=== PATIENT | female | born 1995 | race Caucasian/White ===

== ENCOUNTER 2017-04-19 21:22 | Emergency (ER) | payer OTHER ==
[~2017-04-19] VITALS: Ht 161.3 cm; Wt 83.0 kg
[2017-04-19 21:31] VITALS: TEMP 37; Ht 161.3 cm; Wt 83.0 kg
[2017-04-19] MEDS ORDERED: KETOROLAC TROMETHAMINE 30 MG/ML VIAL IV STA (21:39)
[2017-04-19] MEDS ORDERED: SODIUM CHLORIDE 0.9% 1000ML 1,000 ML IV ONE (21:45)
[2017-04-19] MEDS ORDERED: MEDR150I IM (21:52)
[2017-04-19 22:11] LABS: URINE APPEARANCE CLEAR (CLEAR); URINE BILIRUBIN NEG (NEG); URINE COLOR YELLOW; URINE EPITHELIAL CELL AUTO >30 /lpf (0-5); URINE NITRITE NEG (NEG); URINE SPECIFIC GRAVITY 1.027 (1.000-1.030); UROBILINOGEN NEG (NEG); ZZUR CULT IF INDIC CLEAN CATCH YES
[2017-04-19 22:18] LABS: MANUAL MICROSCOPIC REQUIRED? NO; REVIEW REQ? NO
[2017-04-19 22:41] LABS: BASO % 0.2 %; BASO ABS # 0.03 K/uL (0-0.2); COMPLETE YES; EOS % 0.6 %; HEMATOCRIT 41.4 % (37-47); IG% 0.2 %; LYMPH % 36.3 %; MEAN CELL VOLUME 90.4 fL (80-100); MEAN CORPUSCULAR HEMOGLOBIN 31.7 pg (25-34); MEAN PLATELET VOLUME 9.8 fL (7.4-10.4); MONO % 5.7 %; PLATELET COUNT 316 K/uL (130-400); RED BLOOD COUNT 4.58 M/uL (4.2-5.4); WHITE BLOOD COUNT 12.39 K/uL (4.8-10.8)
[2017-04-19 23:07] LABS: BUN/CREATININE RATIO 14.6 (10-20); CREATININE 0.84 mg/dl (0.60-1.20); POTASSIUM 4.1 mmol/L (3.5-5.1)
[2017-04-20 00:32] VITALS: BP 118/70; PULSE 98; O2SAT 98
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
--- NOTE | 2017-04-20 06:30 | DIAGNOSTIC IMAGING REPORT ---
PA CHEST RADIOGRAPH AND UPRIGHT AND SUPINE AP RADIOGRAPHS OF THE ABDOMEN CLINICAL HISTORY: Abdominal cramping. COMPARISON STUDY: No previous studies for comparison. FINDINGS: Lung volumes are normal. There is an azygos fissure. No pneumothorax or pleural effusion is present. There is no consolidation to suggest pneumonia. Pulmonary vascularity is normal. Cardiomediastinal silhouette is normal. There is no free air. The bowel gas pattern is normal. IMPRESSION: 1. No free air or evidence of bowel obstruction. 2. No acute cardiopulmonary findings. Electronically signed by: Demetrius Mo M.D. 04/20/2017 6:29 AM Dictated Date/Time: 04/20/2017 6:27 AM
--- NOTE | 2017-04-20 07:05 | DIAGNOSTIC IMAGING REPORT ---
ABDOMEN AND PELVIS CT WITHOUT CONTRAST CT DOSE: 480.34 mGy.cm HISTORY: Acute generalized abdominal pain with leukocytosis and nausea Abd pain. Elevated WBC TECHNIQUE: Multiaxial CT images of the abdomen and pelvis were performed without contrast. A dose lowering technique was utilized adhering to the principles of ALARA. COMPARISON STUDY: Ultrasound 05/17/2015. FINDINGS: The lung bases are generally clear. There is no pneumatosis or pneumoperitoneum. Imaged inferior cardiac chambers are unremarkable. Gallbladder is contracted. The liver, spleen, pancreas and adrenal glands are within normal limits. Kidneys, ureters and urinary bladder are within normal limits. There is no renal calculi or hydronephrosis. Calcification of the right hemipelvis suggests a phlebolith. Uterus is unremarkable. Probable dominant follicle of the right ovary, 2.1 cm. Follicular changes are seen within left ovary. Aorta is normal in course and caliber. There is no bulky adenopathy. There is no bowel obstruction or focal bowel wall thickening. The appendix is not definitively seen. No secondary signs of acute appendicitis. Soft tissues are unremarkable. Bones appear intact. IMPRESSION: 1. No acute intra-abdominal or intrapelvic abnormality identified. 2. No evidence of acute appendicitis. Electronically signed by: Rodolfo Hernández M.D. 04/20/2017 7:04 AM Dictated Date/Time: 04/20/2017 7:00 AM
== END 2017-04-20 00:32 | disposition home or self-care (01) ==
LOC: C.EDB 21:25
DX: R10.9 Unspecified abdominal pain (principal); M54.5 Low back pain; Z87.440 Personal history of urinary (tract) infections

== ENCOUNTER 2019-10-27 08:53 | Inpatient (IN) ==
[2019-10-27 09:44] LABS: Hematocrit (blood only) 38.4 % (37-47); Hemoglobin 12.6 g/dL (12.0-16.0); Mean Corpuscular Hemoglobin 29.2 pg (25-34); Mean Corpuscular Volume 89.1 fL (80-100); Mean Platelet Volume 10.3 fL (7.4-10.4); Platelet Count 232 K/uL (130-400); RDW Standard Deviation 45.7 fL (36.4-46.3); Red Blood Count 4.31 M/uL (4.2-5.4); White Blood Count 11.63 K/uL (4.8-10.8)
[2019-10-27] MEDS: LACTATED RINGER'S 1,000 ML IV PRN ×2 (09:44→10:37)
[2019-10-27] MEDS ORDERED: ePHEDrine sulfate 50 MG/ML AMP ONE (09:45)
[2019-10-27] MEDS ORDERED: fentaNYL citrate 100 MCG/2 ML VIAL ONE (09:45)
[2019-10-27] MEDS ORDERED: fentaNYL 2MCG/ML ROPIV 1.25MG/ML 100 ML BAG EPI ONE (09:45)
[2019-10-27] MEDS ORDERED: BUPIVACAINE 0.25% 30 ML VIAL ONE (09:45)
--- NOTE | 2019-10-27 09:57 | Anesthesiology Consultation ---
Date of Service October 27, 2019 Assessment & Plan Chart Review Chart Review: Acceptable Risk for Surgery, Patient NOT seen in Pre Admission Testing and Acceptable Risk for Labor Epidural Consults Requested none pt denies covid S/sx's ASA ASA2 Proposed Anesthesia Anesthesia Type: Labor Epidural and CSE Risk / Benefits Reviewed With: PT / POA / Parent / Guardian, Accepts Plan and Informed Consent Obtained History Height/Weight Height: 5 ft 4 in Weight: 93.44 kg Allergies Allergy/AdvReac Type Severity Reaction Status Date / Time No Known Allergies Allergy Verified 10/27/19 09:12 Medications Home Medications Medication Instructions Recorded Confirmed Last Taken PNV cmb#95-ferrous fumarate-FA 1 tab PO DAILY 03/04/19 10/27/19 10/26/19 09:00 [] Active Medications Generic Name Dose Route Start Last Admin Trade Name Freq PRN Reason Stop Dose Admin Lactated Ringer's 1,000 mls @ 125 mls/hr 10/27/19 09:18 10/27/19 09:44 Lr IV 10/29/19 09:17 999 mls/hr .Q8H PRN Administration L&D Protocol Protocol NPO Date Last Intake of Fluids: 10/26/19 Time Last Intake of Fluids: 21:00 Date Last Intake of Solids: 10/26/19 Time Last Intake of Solids: 21:00 Past Medical History Medical History Anxiety no meds currently was perscribed zolfot but has not started. History of PCOS History of depression no meds Pyelonephritis (Acute) Exercise / Class Metabolic Activity II 4-5 Yardwork/Stairs/Walk up hill Past Family History Family History Other No significant family history Past Anesthesia History No Hx of Anesthesia Complications and No Family Hx of Anesthesia Complications History of PONV No Hx of PONV and No Hx of Motion Sickness Social History Smoking Status: Never smoker Hx Alcohol Use: No Hx Substance Use: No substance use type: does not use Physical Exam Vital Signs Last Vital Signs Temp 37.4 C 10/27/19 09:07 Pulse 103 H 10/27/19 09:53 Resp 20 10/27/19 09:07 BP 138/93 10/27/19 09:06 Pulse Ox 100 10/27/19 09:53 Constitutional + obese ENMT Mouth: + small oral opening; no dentition abnormality Thyromental Distance: < 3.5 Finger Breadths Mallampati Class: II Neck normal visual inspection and trachea midline; neck extension not limited Respiratory normal respiratory effort Auscultation: lungs clear to auscultation bilaterally Cardiovascular Rate/Rhythm: regular rate and regular rhythm Heart Sounds: no murmur Musculoskeletal Spine: lumbar spine normal to inspection; normal cervical ROM Neurologic moves all extremities Motor/Sensory: no sensory deficit Psychiatric Orientation: alert and oriented x 3 Testing Laboratory Results 10/27/19 09:30 no covid test
[2019-10-27] MEDS ORDERED: ONDANSETRON INJ 2 MG/ML 2 ML VIAL IV PRN (10:15)
[2019-10-27] MEDS ORDERED: fentaNYL 2MCG/ML ROPIV 1.25MG/ML 100 ML BAG EPI PRN (10:15)
[2019-10-27] MEDS ORDERED: ePHEDrine sulfate 50 MG/ML AMP IV PRN (10:15)
[2019-10-27] MEDS ORDERED: DiphenhydrAMINE HCL 50 MG/ML VIAL IV PRN (10:15)
[2019-10-27] MEDS ORDERED: NALOXONE HCL 0.4 MG/1 ML VIAL/CARP IV PRN (10:15)
[2019-10-27] MEDS ORDERED: NALOXONE HCL 1 MG in SODIUM CHLORIDE 0.9% 1000ML 1,000 ML IV PRN (10:15)
[2019-10-27] MEDS ORDERED: NALBUPHINE HCL INJ 10 MG/ML AMP IV PRN (10:15)
[2019-10-27] MEDS ORDERED: PROMETHAZINE HCL 25 MG in SODIUM CHLORIDE 0.9% 50 ML IV PRN (10:15)
[2019-10-27 11:46] LABS: Mean Corpuscular Hgb Conc 32.8 g/dL (32-36)
[2019-10-27] MEDS: OXYTOCIN 30 UNITS/500 ML BAG IV PRN ×2 (12:39→14:06)
[2019-10-27] MEDS ORDERED: METHYLERGONOVINE MALEATE 0.2 MG/ML AMP ONE (12:40)
[2019-10-27] MEDS ORDERED: METHYLERGONOVINE MALEATE 0.2 MG/ML AMP IM ONE (12:57)
[2019-10-27] MEDS ORDERED: HYDROCORTISONE ACETATE 25 MG SUPP PR PRN (12:57)
[2019-10-27] MEDS ORDERED: bisacodyL 10 MG SUPP PR PRN (12:57)
[2019-10-27] MEDS ORDERED: BENZOCAINE 20% AER SPR 82.5 GM CAN EXT PRN (12:57)
[2019-10-27] MEDS ORDERED: miSOPROStoL 200 MCG TAB PR ONE (12:57)
[2019-10-27] MEDS ORDERED: DIPHTHERIA/TETANUS/PERTUSSIS 0.5 ML SYR/VIAL IM ONE (12:57)
[2019-10-27] MEDS ORDERED: OXYCODONE/ACETAMINOPHEN 5mg/325mg TAB PO PRN (12:57)
[2019-10-27] MEDS ORDERED: ACETAMINOPHEN W/CODEINE #3 1 TAB PO PRN (12:57)
[2019-10-27] MEDS ORDERED: SUPERCREAM 0.870% 15 GM JAR EXT PRN (12:57)
[2019-10-27] MEDS ORDERED: ACETAMINOPHEN 325 MG TAB PO PRN (12:57)
[2019-10-27] MEDS ORDERED: OXYTOCIN 30 UNITS/500 ML BAG IV PRN (12:57)
[2019-10-27] MEDS ORDERED: IBUPROFEN 600 MG TAB PO PRN (12:57)
[2019-10-27] MEDS ORDERED: miSOPROStoL 200 MCG TAB ONE (13:04)
--- NOTE | 2019-10-27 13:34 | Anesthesia Procedure Note ---
Date of Service October 27, 2019 Anesthesia Post Epidural Note Vital Signs Vital Signs: Temp Pulse Resp BP Pulse Ox 36.4 C L 93 H 18 123/79 98 10/27/19 11:00 10/27/19 13:31 10/27/19 12:15 10/27/19 13:31 10/27/19 12:43 Notes Mental Status: alert / awake / arousable Nausea / Vomiting: adequately controlled Pain: adequately controlled Airway Patency, RR, SpO2: stable & adequate BP & HR: stable & adequate Hydration State: stable & adequate Neuraxial Anesthesia: was administered and sensory block is resolving Anesthetic Complications: no major complications apparent Epidural: Removed without complications and With tip intact
[2019-10-27] MEDS: DOCUSATE SODIUM 100 MG CAP PO SCH (20:41)
--- NOTE | 2019-10-27 20:51 | Delivery Summary ---
DATE OF OPERATION: 10/27/2019 DELIVERY NOTE: 2, para 2, blood type is O positive, group B strep negative, was admitted with randy rupture of membranes at 38 weeks 2 days. She had randy rupture of membranes at 6:00 a.m. on the day of admission, she called and was told to come to the hospital. She was chastity nicely. Her first exam showed her to be 7 cm dilated, 100% effaced. Soon after that she received epidural anesthesia. She obtained good pain control. She then had an unstimulated labor, went to full dilatation, pushed out a live via direct occiput anterior position over an intact perineum. was suctioned through the mouth and the nose. Cord was allowed to pulse for 1 minute before clamping, it was clamped, cut by the father. Cord blood was taken. With IV Pitocin running, the placenta was removed intact. There was more than usual amount of blood and so we went on to give her 0.2 mg IM Methergine. I then repaired a first degree laceration by approximating the vaginal mucosa out to beyond the hymenal ring with a running Vicryl suture. I did a deep suture of the bulbocavernosus muscle, separate suture of the perineal body and then did a running subcuticular perineal skin edge approximation. Following this, vag exam was normal. Sponges were removed. She continued to have a little bit of extra bleeding. We went to give Cytotec 800 mcg vaginally along with massage. She contracted nicely. Estimated blood loss was 400 mL. Apgars were good. The exact numbers were deferred to the nurses. I attest to the content of the Intraoperative Record and any orders documented therein. Any exception s are noted below.
[2019-10-28 06:02] LABS: Hematocrit (blood only) 29.2 % (37-47); Hemoglobin 9.7 g/dL (12.0-16.0); Mean Corpuscular Hemoglobin 29.4 pg (25-34); Mean Corpuscular Hgb Conc 33.2 g/dL (32-36); Mean Corpuscular Volume 88.5 fL (80-100); Mean Platelet Volume 10.2 fL (7.4-10.4); Platelet Count 171 K/uL (130-400); RDW Coefficient of Variation 14.1 % (11.5-14.5); RDW Standard Deviation 45.7 fL (36.4-46.3); White Blood Count 11.11 K/uL (4.8-10.8)
[2019-10-28] MEDS ORDERED: PRENATAL VITAMIN 1 TAB PO SCH (08:00)
[2019-10-28] MEDS: DOCUSATE SODIUM 100 MG CAP PO SCH (08:19)
--- NOTE | 2019-10-28 10:23 | Obstetrical Progress Note ---
Date of Service October 28, 2019 Assessment & Plan Admission and Anticipated Discharge Date Admission Date: October 27, 2019 Physical Exam Physical Exam: abdomen soft and non tender no calf tenderness ambulating well vaginal bleeding scant hgb 9.7 Results & Data [facility]) Vital Signs (Past 12 Hours) Vital Signs Temp Pulse Resp BP 10/28/19 03:35 36.6 C 70 18 110/78 10/27/19 23:40 36.6 C 84 18 132/97
[2019-10-28] MEDS ORDERED: bisacodyL 5 MG TABEC PO SCH (20:00)
== END 2019-10-28 13:40 | disposition home or self-care (01) | DRG 807 ==
LOC: OPB 08:53 → 4S1 08:56 → 4S2 16:54

== ENCOUNTER 2021-03-09 07:11 | Inpatient (IN) ==
[2021-03-09] MEDS ORDERED: OXYTOCIN 30 UNITS/500 ML BAG IV PRN ×3 (08:12→16:01)
--- NOTE | 2021-03-09 08:19 | History & Physical Report ---
Date of Service March 09, 2021 Assessment & Plan (1) Post-term , 40-42 weeks of gestation: Plan: 25 yo at 41 wks, presenting for IOL in latent labor with irregular ctxs VSS Afebrile FHR reassuring GBS neg Plan to admit, augment with Pitocin, epidural for pain, anticipate Psychiatry consultation (2) Depression affecting in third trimester, antepartum: Admission and Anticipated Discharge Date Admission Date: March 09, 2021 History of Present Illness Primary Care Provider: Monica Morgan PA-C Patient is a 25 yo at 41 wks, IOL for postdates Ctxs starred at 05:30 and has been irregular every 10 min No LOF/VB +FM's Her has been complicated by 1) Depression, has not used her meds, Zoloft, desires to Psychiatry 2) Class I Obesity 3) Close interval GBS neg Allergies Allergy/AdvReac Type Severity Reaction Status Date / Time No Known Allergies Allergy Verified 10/27/19 09:12 Home Medications Medication Instructions Recorded Confirmed Type vit no.95-ferrous 1 tab PO DAILY 03/04/19 03/09/21 History fumarate 28 mg-folic acid 800 mcg tablet () vitamin [id number] acid 03/09/21 History Patient History Medical History (Updated 03/09/21 @ 08:17 by Shaheen Jimenez MD) Anxiety no meds currently was perscribed zolfot but has not started. 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 Beliefs That Will Affect Care: None marital status: Current Living Situation: Family Current Living Situation Comment: Lives with and 2 children Other Information That Helps Us Care for You: No Feels Safe at Home: Yes Safety Concerns: Feels Safe At This Time Assistive Devices: None OB History 2 FT 's [employer] History No h/o STD's, no h/o HSV/ Chlamydia/ GC Review of Systems as per Subjective / HPI Physical Exam Constitutional: well developed and well nourished NAD Gastrointestinal (Abdomen): Inspection/Auscultation: abdomen normal to inspection and + abdomen distended Genitourinary: normal external appearance Manual OB Exam: + cervical dilation 5 cm, + cervical effacement 50% and + station -2 OB Exam Monitor Tracing: + external uterine monitor used and + category I Results & Data ([facility]) Vital Signs (Past 12 Hours) Vital Signs Temp Pulse Resp BP 03/09/21 07:45 37.2 C 118 H 18 127/84 03/09/21 07:24 118 H 127/84
[2021-03-09 08:37] LABS: Hematocrit (blood only) 37.3 % (37-47); Hemoglobin 12.5 g/dL (12.0-16.0); Mean Corpuscular Hgb Conc 33.5 g/dL (32-36); Mean Corpuscular Volume 89.4 fL (80-100); Mean Platelet Volume 10.3 fL (7.4-10.4); Platelet Count 212 K/uL (130-400); RDW Coefficient of Variation 17.9 % (11.5-14.5); RDW Standard Deviation 58.5 fL (36.4-46.3); Red Blood Count 4.17 M/uL (4.2-5.4); White Blood Count 9.47 K/uL (4.8-10.8)
[2021-03-09] MEDS: LACTATED RINGER'S 1,000 ML IV PRN ×2 (08:40→10:29)
[2021-03-09] MEDS ORDERED: SODIUM CHLORIDE 0.9% INJ 10 ML VIAL ONE (08:54)
[2021-03-09] MEDS ORDERED: ePHEDrine sulfate 50 MG/ML AMP ONE (08:54)
[2021-03-09] MEDS ORDERED: BUPIVACAINE 0.25% 30 ML VIAL ONE (08:54)
[2021-03-09] MEDS ORDERED: fentaNYL 2MCG/ML ROPIVACAINE 1.25MG/ML 100 ML BAG EPI ONE (08:55)
[2021-03-09] MEDS ORDERED: fentaNYL citrate 100 MCG/2 ML VIAL ONE (08:55)
[2021-03-09] MEDS ORDERED: FLUCONAZOLE 50 MG TAB PO ONE (12:48)
[2021-03-09] MEDS ORDERED: NALBUPHINE HCL INJ 10 MG/ML AMP IV PRN (13:12)
[2021-03-09] MEDS ORDERED: NALOXONE HCL 1 MG in SODIUM CHLORIDE 0.9% 1000ML 1,000 ML IV PRN (13:12)
[2021-03-09] MEDS ORDERED: ePHEDrine sulfate 50 MG/ML AMP IV PRN (13:12)
[2021-03-09] MEDS ORDERED: fentaNYL 2MCG/ML ROPIVACAINE 1.25MG/ML 100 ML BAG EPI PRN (13:12)
[2021-03-09] MEDS ORDERED: NALOXONE HCL 0.4 MG/1 ML VIAL/CARP IV PRN (13:12)
[2021-03-09] MEDS ORDERED: diphenhydrAMINE 50 MG/ML VIAL IV PRN (13:12)
--- NOTE | 2021-03-09 13:51 | Communication Note ---
Date of Service: March 09, 2021 Consult acknowledged, chart reviewed. Patient had been on Zoloft earlier in . No mention of SI and patient is being induced/active labor. Liaison to meet with patient soon after delivery with full consult within 24 hrs depending on progress.
--- NOTE | 2021-03-09 14:05 | Obstetrical Progress Note ---
Date of Service March 09, 2021 Assessment & Plan Admission and Anticipated Discharge Date Admission Date: March 09, 2021 Subjective Patient is reevaluated. She is comfortable now, received epidural, heart rate category 1, [place] with contractions every 2 to 3 minutes, Pitocin is at 10 mIU/min. She felt a gush of fluid leakage few minutes ago. Cervix is 6 to 7 cm dilated, 70% effaced, head -2 station, no bulging bag, large gush of clear fluid leakage happened during exam, Continue to monitor closely, Anticipate . Results & Data ([facility]) Vital Signs (Past 12 Hours) Vital Signs Temp Pulse Resp BP Pulse Ox 03/09/21 13:57 124 H 99 03/09/21 13:52 102 H 97 03/09/21 13:47 121 H 99 03/09/21 13:46 129 H 118/78 03/09/21 13:42 101 H 98 03/09/21 13:37 88 97 03/09/21 13:32 119 H 98 03/09/21 13:31 109 H 109/65 03/09/21 13:27 115 H 97 03/09/21 13:22 91 H 98 03/09/21 13:17 123 H 121/61 97 03/09/21 13:12 97 H 97 03/09/21 13:07 124 H 98 03/09/21 13:02 105 H 97 03/09/21 13:01 129 H 115/78 03/09/21 12:57 99 H 97 03/09/21 12:52 111 H 98 03/09/21 12:47 112 H 98 03/09/21 12:46 125 H 118/77 03/09/21 12:42 84 97 03/09/21 12:37 118 H 98 03/09/21 12:32 91 H 98 03/09/21 12:31 108 H 119/78 03/09/21 12:28 93 H 119/65 03/09/21 12:27 116 H 99 03/09/21 12:22 108 H 99 03/09/21 12:17 108 H 99 03/09/21 12:12 98 H 99 03/09/21 12:07 99 H 99 03/09/21 12:06 91 H 93 03/09/21 12:02 104 H 110/54 L 99 03/09/21 11:57 88 98 03/09/21 11:52 80 99 03/09/21 11:47 105 H 99 03/09/21 11:46 36.9 C 105 H 18 99/61 L 99 03/09/21 11:42 85 99 03/09/21 11:37 105 H 99 03/09/21 11:32 107 H 98 03/09/21 11:31 101 H 94/59 L 03/09/21 11:27 96 H 99 03/09/21 11:22 96 H 100 03/09/21 11:17 113 H 105/62 99 03/09/21 11:12 99 H 99 03/09/21 11:07 106 H 99 03/09/21 11:02 112 H 99 03/09/21 11:01 86 104/62 03/09/21 10:57 94 H 98 03/09/21 10:52 87 99 03/09/21 10:47 92 H 99 03/09/21 10:46 100 H 82/50 L 03/09/21 10:42 92 H 90/55 L 99 03/09/21 10:37 85 95/51 L 99 03/09/21 10:33 105 H 96/55 L 03/09/21 10:32 95 H 99 03/09/21 10:29 102 H 18 159/119 H 03/09/21 10:27 87 99 03/09/21 10:22 90 100 03/09/21 10:17 116 H 99 03/09/21 10:16 96 H 20 102/66 03/09/21 10:12 92 H 99 03/09/21 10:11 106 H 105/58 L 03/09/21 10:07 105 H 99 03/09/21 10:04 112 H 105/65 03/09/21 10:02 110 H 99 03/09/21 10:01 94 H 20 111/68 03/09/21 09:58 114 H 97/74 L 03/09/21 09:57 103 H 98 03/09/21 09:55 109 H 103/66 03/09/21 09:52 102 H 101/59 L 99 03/09/21 09:49 107 H 101/57 L 03/09/21 09:47 106 H 18 99 03/09/21 09:46 103 H 102/58 L 03/09/21 09:43 93 H 101/59 L 03/09/21 09:42 106 H 18 98 03/09/21 09:40 110 H 97/64 L 03/09/21 09:39 102 H 103/60 03/09/21 09:37 103 H 20 99 03/09/21 09:23 136 H 132/92 03/09/21 07:45 37.2 C 118 H 18 127/84 03/09/21 07:24 118 H 127/84
--- NOTE | 2021-03-09 15:02 | Anesthesiology Consultation ---
Date of Service March 09, 2021 Assessment & Plan (1) Encounter for pre-operative examination: Chart Review Chart Review: Patient NOT seen in Pre Admission Testing and Acceptable Risk for Labor Epidural Consults Requested none ASA ASA2 Proposed Anesthesia Anesthesia Type: Labor Epidural Risk / Benefits Reviewed With: PT / POA / Parent / Guardian, Accepts Plan and Informed Consent Obtained History Height/Weight Height: 5 ft 4 in Weight: 88.904 kg Allergies Allergy/AdvReac Type Severity Reaction Status Date / Time No Known Allergies Allergy Verified 10/27/19 09:12 Medications Home Medications Medication Instructions Recorded Confirmed Last Taken vit no.95-ferrous 1 tab PO DAILY 03/04/19 03/09/21 03/08/21 08:00 fumarate 28 mg-folic acid 800 mcg tablet () vitamin M86-whfxn acid 03/09/21 03/08/21 08:00 Active Medications Generic Name Dose Route Start Last Admin Trade Name Freq PRN Reason Stop Dose Admin Lactated Ringer's 1,000 mls @ 150 mls/hr 03/09/21 08:12 03/09/21 10:29 Lr IV 03/11/21 08:11 150 mls/hr .Q6H40M PRN Administration L&D Protocol Protocol Oxytocin 30 units in 500 mls @ 10 mls/hr 03/09/21 08:19 03/09/21 12:15 Pitocin IV 03/11/21 08:18 0.6 units/hr .Q24H PRN 10 mls/hr Labor Induction/Augmentation Titration Protocol 0.6 UNITS/HR Past Medical History Medical History (Updated 03/09/21 @ 15:02 by Evangelista Packer MD) Anxiety no meds currently was perscribed zolfot but has not started. History of PCOS History of depression no meds Pyelonephritis Exercise / Class Metabolic Activity II 4-5 Yardwork/Stairs/Walk up hill Past Family History Family History Other No significant family history Past Anesthesia History No Hx of Anesthesia Complications and No Family Hx of Anesthesia Complications History of PONV No Hx of PONV and No Hx of Motion Sickness Social History Smoking Status: Never smoker Do You Dip or Chew Tobacco: No Hx Alcohol Use: No Hx Substance Use: No substance use type: does not use Physical Exam Vital Signs Last Vital Signs Temp 36.9 C 03/09/21 11:46 Pulse 98 H 03/09/21 15:00 Resp 20 03/09/21 14:03 BP 124/71 03/09/21 15:00 Pulse Ox 98 03/09/21 14:57 ENMT Mouth: no dentition abnormality Thyromental Distance: > or= 3.5 Finger Breadths Mallampati Class: II Neck normal visual inspection Respiratory normal respiratory effort Auscultation: lungs clear to auscultation bilaterally Cardiovascular Rate/Rhythm: regular rate and regular rhythm Psychiatric Orientation: alert Testing Laboratory Results 03/09/21 08:25
[2021-03-09] MEDS ORDERED: MINERAL OIL 30 ML UDC ONE (15:32)
[2021-03-09] MEDS ORDERED: ACETAMINOPHEN 325 MG TAB PO PRN (16:01)
[2021-03-09] MEDS ORDERED: DIPHTHERIA/TETANUS/PERTUSSIS 0.5 ML SYR/VIAL IM ONE (16:01)
[2021-03-09] MEDS ORDERED: MEASLES, MUMPS & RUBELLA VIRUS VIAL SQ ONE (16:01)
[2021-03-09] MEDS ORDERED: HYDROCORTISONE ACETATE 25 MG SUPP PR PRN (16:01)
[2021-03-09] MEDS ORDERED: SUPERCREAM 0.870% 15 GM JAR EXT PRN (16:01)
[2021-03-09] MEDS ORDERED: bisacodyL 10 MG SUPP PR PRN (16:01)
[2021-03-09] MEDS ORDERED: BENZOCAINE 20% AER SPR 82.5 GM CAN EXT PRN (16:01)
[2021-03-09] MEDS ORDERED: IBUPROFEN 600 MG TAB PO PRN (16:01)
--- NOTE | 2021-03-09 16:05 | Delivery Summary ---
Vaginal Delivery Summary Date of Service March 09, 2021 Vaginal Delivery Summary Patient was found to be fully dilated and desire to push. She pushed for about 10 minutes and delivered the head without difficulty, the shoulders were delivered with minimal traction, the baby was handed off to the mother, where her mouth and nose were suctioned. Baby was vigorously moving and crying at that point. The cord was clamped x2 and cut at 1 minute delay. Cord blood was obtained. And then placenta was found to be in the vagina and delivered spontaneously as intact and complete. Uterus was explored found to be empty. Lower segment was cleared of all clots and debris. EBL was 150 mL. There was a small second-degree perineal laceration at the posterior fourchette, which was repaired with 2-0 Vicryl in a running fashion. Excellent hemostasis was achieved. The mom and baby tolerated procedure well, sponge lap needle count was correct x2. Baby was a viable female infant ,Apgars 9/9, weight is pending. No complications happened, I was present during whole procedure.
--- NOTE | 2021-03-09 16:12 | Anesthesia Procedure Note ---
Date of Service March 09, 2021 Anesthesia Post Epidural Note Vital Signs Vital Signs: Temp Pulse Resp BP Pulse Ox 36.9 C 83 18 117/63 96 03/09/21 11:46 03/09/21 16:01 03/09/21 15:45 03/09/21 16:01 03/09/21 15:57 Notes Mental Status: alert / awake / arousable Nausea / Vomiting: adequately controlled Pain: adequately controlled Airway Patency, RR, SpO2: stable & adequate BP & HR: stable & adequate Hydration State: stable & adequate Neuraxial Anesthesia: was administered and sensory block is resolving Anesthetic Complications: no major complications apparent Epidural: Removed without complications and With tip intact
[2021-03-09] MEDS: DOCUSATE SODIUM 100 MG CAP PO SCH (19:46)
[2021-03-09] MEDS ORDERED: bisacodyL 5 MG TABEC PO SCH (20:00)
[2021-03-10 06:30] LABS: Hemoglobin 11.8 g/dL (12.0-16.0); Mean Corpuscular Hemoglobin 29.9 pg (25-34); Mean Corpuscular Hgb Conc 32.8 g/dL (32-36); Mean Corpuscular Volume 91.4 fL (80-100); Mean Platelet Volume 10.3 fL (7.4-10.4); Platelet Count 197 K/uL (130-400); RDW Coefficient of Variation 17.7 % (11.5-14.5); RDW Standard Deviation 60.2 fL (36.4-46.3); Red Blood Count 3.94 M/uL (4.2-5.4); White Blood Count 10.18 K/uL (4.8-10.8)
[2021-03-10] MEDS ORDERED: PRENATAL VITAMIN 1 TAB PO SCH (08:00)
[2021-03-10] MEDS ORDERED: FERROUS SULFATE 325 MG TAB PO SCH (08:00)
--- NOTE | 2021-03-10 08:59 | Obstetrical Progress Note ---
Date of Service March 10, 2021 Assessment & Plan (1) Normal course: Pt doing well No PP complaints wishes to be discharged home today (2) History of depression: Hx of depression Psych on consult Seen by Pych Nurse. Expecting MD to see pt today will disch. pt after Pysch ok;s pt for discharge Subjective Ambulation: ambulating normally Voiding: no voiding problems Passing Gas:: Yes Diet Tolerance:: regular diet Lochia:: Small Feeding Type:: breast feeding Review of Systems All systems reviewed & are unremarkable except as noted in HPI & below Physical Exam Constitutional WD/WN, vitals as above well developed and well nourished Eyes PERRL, conjunctivae normal, anicteric sclerae Neck trachea midline, no thyromegaly Respiratory normal respiratory effort, lungs clear to auscultation Auscultation: no crackles, no rales and no wheezes Cardiovascular RRR, no murmur, no edema Gastrointestinal (Abdomen) normal bowel sounds, soft, nontender, no hepatosplenomegaly Uterus is below umbilicus Musculoskeletal no cyanosis or clubbing, extremities motor strength 5/5 Skin no rashes, warm and dry Neurologic patellar DTR's 2+ bilat, sensation intact Psychiatric A+Ox3, euthymic affect Genitourinary normal external appearance Results & Data ([facility]) Vital Signs (Past 12 Hours) Vital Signs Temp Pulse Resp BP 03/10/21 03:50 36.3 C L 78 18 100/77 03/09/21 23:32 36.5 C 87 18 123/86
[2021-03-10] MEDS: DOCUSATE SODIUM 100 MG CAP PO SCH (09:09)
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
== END 2021-03-10 16:20 | disposition home or self-care (01) | DRG 807 ==
LOC: 4S1 07:11 → 4S2 18:38

== ENCOUNTER 2022-01-09 17:22 | Inpatient (IN) ==
--- NOTE | 2022-01-09 17:56 | Emergency Department Note ---
Impression & Plan Suicidal ideations, Depression ED Provider Note NAME: NOAH SANTA AGE: 26 SEX: F : 1995 ARRIVES VIA: Walk-In INFORMANT: Patient ED PROVIDER(S): Dino Cortes DO CHIEF COMPLAINT: Suicidal ideations HPI: Patient is a 26-year-old female who presents to the ER for suicidal ideations. Patient notes that since having her second child about 10 months ago she has been more depressed. She has a history of PTSD, major depressive disorder and anxiety. She notes she does not want to live anymore. She is still through different things of how to kill her self but notes she does not have anything in her house that she could kill her self with including a pocket knife. ROS: See above HPI for pertinent positives & negatives. A total of 10 systems reviewed and were otherwise negative. PAST MEDICAL HISTORY:See Below PAST SURGICAL HISTORY:See Below FAMILY HISTORY:See Below SOCIAL HISTORY:See Below HOME MEDICATIONS:See Below ALLERGIES:See Below VITALS:See Below PHYSICAL EXAMINATION: GENERAL: Sitting up in bed, alert, well appearing, well nourished, no distress, non-toxic EYE EXAM: normal conjunctiva. PERRL and EOM's grossly intact. OROPHARYNX: mucous membranes are moist LUNGS: Clear to auscultation. Normal chest wall mechanics HEART: no murmurs, S1 normal and S2 normal ABDOMEN: abdomen soft, non-tender, normo-active bowel sounds, no masses, no rebound or guarding. UPPER EXTREMITIES: upper extremities are grossly normal. LOWER EXTREMITIES: No pitting edema. NEURO EXAM: Normal sensorium, cranial nerves II-XII grossly intact, normal speec h, no gross weakness of arms, no gross weakness of legs. No drift. Finger to nose intact. Gross sensation intact. PSYCH: Denies any suicidal or homicidal ideations. No auditory visual hallucination. Admits to suicidal thoughts MEDICAL DECISION MAKING: Patient is a 26-year-old female who presents ER for suicidal ideations. IV was established blood was obtained. Labs show no significant leukocytosis or anemia. BMP with LFTs bilirubin and TSH was unremarkable. UA was unremarkable. Tox was negative. Alcohol was negative. COVID was negative. Patient was seen and evaluated and accepted to [address] on a 201. Triage Nursing notes reviewed. Limited review of prior medical records performed Vital Signs: reviewed and remarkable for HTn and tachy Differential diagnosis: Mood disorder, infection, hypoglycemia, electrolyte abnormalities, cardiac sources, intracerebral event, toxicologic, trauma, neurologic, as well as other pathologies. ER treatment provided: See below Diagnostics interpreted by me: ECG: none Laboratory studies: As stated above and show below. Imaging studies: See below Consultation(s): none Procedures: none Critical Care: None Past Med/Surg History Medical History (Updated 01/09/22 @ 23:01 by Dino Cortes DO) Anxiety no meds currently was perscribed zolfot but has not started. History of PCOS History of depression no meds Pyelonephritis Family History Other No significant family history Social History Smoking Status: Never smoker Second Hand Exposure: No; Hx Alcohol Use: No Hx Substance Use: No Preferred Language: Welsh Communication Ability: Effective Appraisal Technician Required: No Beliefs That Will Affect Care: None marital status: Current Living Situation: Family Current Living Situation Comment: Lives with and 2 children Feels Safe at Home: Yes Assistive Devices: None Allergies Allergies Allergy/AdvReac Type Severity Reaction Status Date / Time No Known Allergies Allergy Verified 10/27/19 09:12 Home Meds Home Medications Medication Instructions Recorded Confirmed vit no.95-ferrous 1 tab PO DAILY 03/04/19 03/09/21 fumarate 28 mg-folic acid 800 mcg tablet () vitamin J34-[id number] acid 03/09/21 Previous Rx's Medication Instructions Recorded ibuprofen 600 mg tablet 600 mg PO Q4H #30 tabs 03/10/21 Results & Data (ED) Vital Signs Vital Signs - 24 hr 01/09/22 17:25 01/09/22 19:35 Temperature 36.4 C L Temperature Source Temporal Artery Scan Pulse Rate 122 H Pulse Rate [Left Finger] 93 H Pulse Rhythm Regular Pulse Strength Normal Respiratory Rate 20 18 Respiratory Effort / Characteristics Non-Labored Spontaneous Non-Labored Spontaneous Respiratory Depth Normal Normal Respiratory Pattern Regular Regular Blood Pressure 154/89 H Blood Pressure [Left Arm] 137/93 Blood Pressure Mean 110 Blood Pressure Mean [Left Arm] 107 Blood Pressure Position Sitting Blood Pressure Position [Left Arm] Sitting Pulse Oximetry 97 98 Oxygen Delivery Method Room Air Room Air Sepsis Recent Fever Within 48 Hours No Sepsis New/Unexplained Change in Mental Status No Sepsis Action Taken by Nursing No Action Required Laboratory Data Result diagrams: 01/09/22 18:39 01/09/22 18:39 Lab Results 01/09/22 01/09/22 01/09/22 Range/Units 17:54 17:54 18:39 WBC 8.55 (4.8-10.8) K/ul RBC 4.39 (3.93-5.22) M/uL Hgb 13.0 (12.0-16.0) g/dl Hct 39.5 (34.1-44.9) % MCV 90.0 (80.0-100.0) fL MCH 29.6 (25.0-34.0) pg MCHC 32.9 (32.0-36.0) g/dL RDW Std Deviation 40.6 (36.4-46.3) fL RDW Coeff of Dom 12.4 (11.5-14.5) % Plt Count 308 (130-400) K/uL MPV 10.0 (9.4-12.3) fL Immature Gran % (Auto) 0.2 % Neut % (Auto) 65.5 % Lymph % (Auto) 27.7 % Lee % (Auto) 5.4 % Eos % (Auto) 0.8 % Baso % (Auto) 0.4 % Neut # (Auto) 5.60 (1.4-6.5) K/uL Lymph # (Auto) 2.37 (1.2-3.4) K/uL Lee # (Auto) 0.46 (0.24-0.82) K/uL Eos # (Auto) 0.07 (0-0.50) K/uL Baso # (Auto) 0.03 (0-0.2) K/uL Immature Gran # (Auto) 0.02 (0.00-0.02) K/uL Sodium (136-145) mmol/L Potassium (3.5-5.1) mmol/L Chloride (98-107) mmol/L Carbon Dioxide (21-32) mmol/L Anion Gap (3-11) BUN (6-23) mg/dl Creatinine (0.6-1.2) mg/dl Est Cr Clr Drug Dosing ml/min Est GFR ( Amer) ml/min Est GFR (Non-Af Amer) ml/min BUN/Creatinine Ratio (10-20) Glucose (70-99(Fasting)) mg/dl Calcium (8.5-10.1) mg/dl Total Bilirubin (0.2-1.0) mg/dl AST (13-39) U/L ALT (7-52) U/L Alkaline Phosphatase (34-104) U/L Total Protein (6.0-8.3) gm/dl Albumin (3.4-5.0) gm/dl Globulin (2.5-4.0) gm/dl Albumin/Globulin Ratio (0.9-2) TSH (0.300-4.500) uIu/ml Urine Color Yellow Urine Appearance Clear (Clear) Urine pH 5.5 (4.5-7.5) Ur Specific [place] 1.030 (1.000-1.030) Urine Protein Negative (Negative) Urine Glucose (UA) Negative (Negative) Urine Ketones Trace H (Negative) Urine Blood Negative (Negative) Urine Nitrite Negative (Negative) Urine Bilirubin Negative (Negative) Urine Urobilinogen Negative (Negative) Ur Leukocyte Esterase Negative (Negative) Salicylates (3.0-30) mg/dl Urine Opiates Screen Neg (Neg) Ur Methadone, Qual Neg (Neg) Acetaminophen (10-30) ug/ml Urine Barbiturates Neg (Neg) Ur Phencyclidine (PCP) Neg (Neg) U Amphetamin/Meth Scrn Neg (Neg) MDMA (Ecstasy) Screen Neg (Neg) U Benzodiazepines Scrn Neg (Neg) Ur Cocaine Metabolite Neg (Neg) U Marijuana (THC) Screen Neg (Neg) Ethyl Alcohol mg/dL (<10.0) mg/dl SARS-CoV-2, RNA, NAAT (NEGATIVE) 01/09/22 01/09/22 01/09/22 Range/Units 18:39 18:39 18:39 WBC (4.8-10.8) K/ul RBC (3.93-5.22) M/uL Hgb (12.0-16.0) g/dl Hct (34.1-44.9) % MCV (80.0-100.0) fL MCH (25.0-34.0) pg MCHC (32.0-36.0) g/dL RDW Std Deviation (36.4-46.3) fL RDW Coeff of Dom (11.5-14.5) % Plt Count (130-400) K/uL MPV (9.4-12.3) fL Immature Gran % (Auto) % Neut % (Auto) % Lymph % (Auto) % Lee % (Auto) % Eos % (Auto) % Baso % (Auto) % Neut # (Auto) (1.4-6.5) K/uL Lymph # (Auto) (1.2-3.4) K/uL Lee # (Auto) (0.24-0.82) K/uL Eos # (Auto) (0-0.50) K/uL Baso # (Auto) (0-0.2) K/uL Immature Gran # (Auto) (0.00-0.02) K/uL Sodium 138 (136-145) mmol/L Potassium 3.9 (3.5-5.1) mmol/L Chloride 107 (98-107) mmol/L Carbon Dioxide 24 (21-32) mmol/L Anion Gap 7 (3-11) BUN 11 (6-23) mg/dl Creatinine 0.74 (0.6-1.2) mg/dl Est Cr Clr Drug Dosing 122.9 ml/min Est GFR ( Amer) 127.8 ml/min Est GFR (Non-Af Amer) 110.3 ml/min BUN/Creatinine Ratio 14.9 (10-20) Glucose 102 H (70-99(Fasting)) mg/dl Calcium 9.1 (8.5-10.1) mg/dl Total Bilirubin 0.3 (0.2-1.0) mg/dl AST 13 (13-39) U/L ALT 11 (7-52) U/L Alkaline Phosphatase 64 (34-104) U/L Total Protein 7.5 (6.0-8.3) gm/dl Albumin 4.5 (3.4-5.0) gm/dl Globulin 3.0 (2.5-4.0) gm/dl Albumin/Globulin Ratio 1.5 (0.9-2) TSH 1.975 (0.300-4.500) uIu/ml Urine Color Urine Appearance (Clear) Urine pH (4.5-7.5) Ur Specific [place] (1.000-1.030) Urine Protein (Negative) Urine Glucose (UA) (Negative) Urine Ketones (Negative) Urine Blood (Negative) Urine Nitrite (Negative) Urine Bilirubin (Negative) Urine Urobilinogen (Negative) Ur Leukocyte Esterase (Negative) Salicylates < 3.0 L (3.0-30) mg/dl Urine Opiates Screen (Neg) Ur Methadone, Qual (Neg) Acetaminophen < 3 L (10-30) ug/ml Urine Barbiturates (Neg) Ur Phencyclidine (PCP) (Neg) U Amphetamin/Meth Scrn (Neg) MDMA (Ecstasy) Screen (Neg) U Benzodiazepines Scrn (Neg) Ur Cocaine Metabolite (Neg) U Marijuana (THC) Screen (Neg) Ethyl Alcohol mg/dL (<10.0) mg/dl SARS-CoV-2, RNA, NAAT (NEGATIVE) 01/09/22 01/09/22 Range/Units 18:39 19:06 WBC (4.8-10.8) K/ul RBC (3.93-5.22) M/uL Hgb (12.0-16.0) g/dl Hct (34.1-44.9) % MCV (80.0-100.0) fL MCH (25.0-34.0) pg MCHC (32.0-36.0) g/dL RDW Std Deviation (36.4-46.3) fL RDW Coeff of Dom (11.5-14.5) % Plt Count (130-400) K/uL MPV (9.4-12.3) fL Immature Gran % (Auto) % Neut % (Auto) % Lymph % (Auto) % Lee % (Auto) % Eos % (Auto) % Baso % (Auto) % Neut # (Auto) (1.4-6.5) K/uL Lymph # (Auto) (1.2-3.4) K/uL Lee # (Auto) (0.24-0.82) K/uL Eos # (Auto) (0-0.50) K/uL Baso # (Auto) (0-0.2) K/uL Immature Gran # (Auto) (0.00-0.02) K/uL Sodium (136-145) mmol/L Potassium (3.5-5.1) mmol/L Chloride (98-107) mmol/L Carbon Dioxide (21-32) mmol/L Anion Gap (3-11) BUN (6-23) mg/dl Creatinine (0.6-1.2) mg/dl Est Cr Clr Drug Dosing ml/min Est GFR ( Amer) ml/min Est GFR (Non-Af Amer) ml/min BUN/Creatinine Ratio (10-20) Glucose (70-99(Fasting)) mg/dl Calcium (8.5-10.1) mg/dl Total Bilirubin (0.2-1.0) mg/dl AST (13-39) U/L ALT (7-52) U/L Alkaline Phosphatase (34-104) U/L Total Protein (6.0-8.3) gm/dl Albumin (3.4-5.0) gm/dl Globulin (2.5-4.0) gm/dl Albumin/Globulin Ratio (0.9-2) TSH (0.300-4.500) uIu/ml Urine Color Urine Appearance (Clear) Urine pH (4.5-7.5) Ur Specific [place] (1.000-1.030) Urine Protein (Negative) Urine Glucose (UA) (Negative) Urine Ketones (Negative) Urine Blood (Negative) Urine Nitrite (Negative) Urine Bilirubin (Negative) Urine Urobilinogen (Negative) Ur Leukocyte Esterase (Negative) Salicylates (3.0-30) mg/dl Urine Opiates Screen (Neg) Ur Methadone, Qual (Neg) Acetaminophen (10-30) ug/ml Urine Barbiturates (Neg) Ur Phencyclidine (PCP) (Neg) U Amphetamin/Meth Scrn (Neg) MDMA (Ecstasy) Screen (Neg) U Benzodiazepines Scrn (Neg) Ur Cocaine Metabolite (Neg) U Marijuana (THC) Screen (Neg) Ethyl Alcohol mg/dL < 10.0 (<10.0) mg/dl SARS-CoV-2, RNA, NAAT NEGATIVE (NEGATIVE) Discharge Plan Visit Data Chief Complaint: Mental Health Evaluation Stated Complaint: VOLUNTARY 302 ED Provider: Dino Cortes Discharge Problem: Suicidal ideations, Depression Patient Disposition: Admitted As Inpatient Discharge Instructions Interventions: ED Discharge Assessment Last Done: 01/09/22 21:37
[2022-01-09 18:05] LABS: Appearance Urine Clear (Clear); Bilirubin Urine Negative (Negative); Blood Urine Negative (Negative); Color Urine Yellow; Glucose Urine UA Negative (Negative); Ketones Urine Trace (Negative); Leukocyte Esterase Urine Negative (Negative); Nitrite Urine Negative (Negative); Protein Urine Negative (Negative); Urobilinogen Urine Negative (Negative); pH Urine 5.5 (4.5-7.5)
[2022-01-09 18:30] LABS: Amphetamines+Metham, Urine Neg (Neg); Barbiturates, Urine Neg (Neg); Benzodiazepine, Urine Neg (Neg); Cocaine, Urine Neg (Neg); MDMA (Ecstacy), Urine Neg (Neg); Methadone, Urine Neg (Neg); Opiate, Urine Neg (Neg); Phencyclidine, Urine Neg (Neg)
[2022-01-09 19:04] LABS: Basophils # (auto) 0.03 K/uL (0-0.2); Basophils % (auto) 0.4 %; Eosinophils # (auto) 0.07 K/uL (0-0.50); Eosinophils % (auto) 0.8 %; Hematocrit (blood only) 39.5 % (34.1-44.9); Immature Granulocytes # (auto) 0.02 K/uL (0.00-0.02); Immature Granulocytes % (auto) 0.2 %; Lymphocytes # (auto) 2.37 K/uL (1.2-3.4); Lymphocytes % (auto) 27.7 %; Mean Corpuscular Hemoglobin 29.6 pg (25.0-34.0); Mean Corpuscular Hgb Conc 32.9 g/dL (32.0-36.0); Monocytes # (auto) 0.46 K/uL (0.24-0.82); Monocytes % (auto) 5.4 %; Neutrophils % (auto) 65.5 %; Platelet Count 308 K/uL (130-400); RDW Coefficient of Variation 12.4 % (11.5-14.5); RDW Standard Deviation 40.6 fL (36.4-46.3); Red Blood Count 4.39 M/uL (3.93-5.22); White Blood Count 8.55 K/ul (4.8-10.8)
[2022-01-09 19:46] LABS: Albumin Globulin Ratio 1.5 (0.9-2); Albumin Level 4.5 gm/dl (3.4-5.0); BUN Creatinine Ratio 14.9 (10-20); Bilirubin,Total 0.3 mg/dl (0.2-1.0); Calcium 9.1 mg/dl (8.5-10.1); Creatinine Clr Calc Pharmacy 122.9 ml/min; Est GFR (African American) 127.8 ml/min; Est GFR (Non-African American) 110.3 ml/min; Potassium 3.9 mmol/L (3.5-5.1); Total Protein 7.5 gm/dl (6.0-8.3)
[2022-01-09 19:47] LABS: Acetaminophen < 3 ug/ml (10-30); Salicylate < 3.0 mg/dl (3.0-30)
[2022-01-09] MEDS ORDERED: BISMUTH SUBSALICYLATE LIQD 236 ML PO PRN (21:17)
[2022-01-09] MEDS ORDERED: ALUMINUM/MAGNESIUM SUSP 30 ML UDC PO PRN (21:17)
[2022-01-09] MEDS ORDERED: SODIUM CHLORIDE 0.65% NA SOLN 45 ML (OCEAN) PRN (21:17)
[2022-01-09] MEDS ORDERED: ACETAMINOPHEN 325 MG TAB PO PRN (21:17)
[2022-01-09] MEDS ORDERED: MAGNESIUM HYDROXIDE SUSP 30 ML UDC PO PRN (21:17)
[2022-01-09] MEDS ORDERED: hydrOXYzine HCl 25 MG TAB PO PRN ×2 (21:17)
--- NOTE | 2022-01-10 13:35 | History & Physical ---
Date of Service January 10, 2022 Impression / Recommendations Impression The patient is a 26 year old with a history of MDD, PTSD, post- who was admitted for worsening mood shifts and SI and difficulty functioning. Diagnostically consistent with unspecified mood disorder possible BPAD type II versus MDD with anxious and likely contribution from PTSD and possible hormonal control effects on her mood. The patient is deemed unstable and requires psychiatric hospitalization for diagnostic clarification, safety and stabilization, medication management and development of further coping skills. Discussed medication treatment options in detail. Discussed risks, benefits and alternatives. Patient would like to start and consented to escitalopram liquid formulation for MDD and PTSD. Reviewed side effects including but not limited to: GI, MAC, sexual side effects and potential for worsening hypomania/causing eve. (1) Recurrent severe major depressive disorder with anxiety: (2) Suicidal ideations: (3) Post traumatic stress disorder (PTSD): Plan 01/10/22: The patient was admitted to the [facility] on q15 min checks (behavioral with suicide precautions) for safety. The patient will participate in group, recreational, and milieu therapies and will be offered additional individual and family sessions as clinically appropriate. -agreeable to starting outpatient therapy -escitalopram 5mg liquid Inventory Assets Strengths: trauma survivor/resilient, supportive marriage, new job, wants help Needs: safety and stabilization, medication adjustment, additional coping skills, increased outpatient services Suicide Risk Level Suicide Risk Level Comments: High-Moderate due to severe depression with SI with plan prior to admission but feels safe in the hospital, able to safety contract and agrees to let nursing/staff know should they develop plan, intent or feel unable to remain safe. Risk Factors Assessment : Yes Do You Have Access To A Gun?: No Mental Health Diagnoses: Yes Previous Attempt: No Family History of Suicide: No Previous Psychiatric Hospitalization: No Hopelessness: Yes Protective Factors Assessment : Yes Responsible for Young Children: Yes Employed: Yes Stable Relationships: Yes Supportive Family: Yes Psychiatric History Identifying Data ARIELLA SANTA is a 26-year-old F who currently lives in [place] with her and three children, has a history of MDD, anxiety, PTSD and post- depression, and was admitted on 01/09/22 21:17 on a 201 voluntary commitment for mood changes, SI and difficulty functioning. Chief Complaint "I was getting scared the thoughts keep getting worse and I can't continue with how I'm feeling". History of Present Illness Ariella presents for psychiatric admission for worsening depression, mood cycles, SI and inability to function with lack of self-care, not able to go to work in the context of multiple psychosocial stressors including 10 month old baby, financial strain, and new job. She got a Mirena IUD in August 2021 and she feels that since having this it has negatively impacted her mood with more mood swings and she recalls having similar issues when she was on the depot injection in the past. Reviewed and she confirmed the following recent history as documented by evs manager on 01/09/22: " Patient reports that she has a history of depression, PTSD, and anxiety. Patient reports that she had two babies back to back and suffers from depression. Patient youngest baby is 10 months old. Patient reports that she has been cycling through low and high periods depending on the day. Patient reports when she is at her low she is having hard time getting out of bed, unable to shower, isolates herself from others, feels constantly anxious, and has frequent crying spells. The next day she may go to the other extreme with decrease need for sleep, excessive energy, excessive cleaning, and excessive spending. Patient reports she is currently only getting 3 hours of sleep per night. Patient also reports extreme changes in appetite; either eating too much or not eating at all. Patient denies auditory and visual hallucinations, and paranoia. Patient reports that she does experience a lot of internal negative self-talk. Patient reports having suicidal thoughts constantly throughout her day, stating I just want it to be over. Patient denies currently having a suicidal plan, but does admit that a month ago she carried her old medications to her bedroom with the intent of overdosing, but was unable to follow through with it. Patient denies HI and self-injurious behaviors. Patient does reports fits of verbal aggression towards her ." She endorses depressive symptoms including tearfulness, anhedonia, decreased motivation, self-guilt, helplessness, hopelessness, decreased energy, decreased appetite, and decreased sleep with only 3 hours per night but slept well here last night. SI has been occurring almost daily but denies specific plans. She also endorses symptoms of anxiety including generalized worries easily overwhelmed and panic attacks once per month. She's been having more flashbacks to past trauma recently, no night terrors. She is not currently prescribed any psychiatric medications. Psychiatric ROS notable for history of symptoms of hypomania including "a bad gambling issue on those high days of buying lottery tickets and believing I'm going to win" though also buys lottery tickets on days when she is depressed, endorses sometimes seeing "dark shadowy things" on days when her mood is low; hx PTSD (has been experiencing some flashbacks lately), no hx OCD, no hx self-harm, no hx eating disorder. Past Psychiatric History Current Psychiatric Diagnosis: MDD, Anxiety, PTSD, post depression Outpatient Services: none currently, in the past saw [facility] provider in 2018 and completed 5 sessions of therapy through [facility] after of her daughter Previous Psych Admissions: n/a Do You Have Access To A Gun?: No History of Previous Suicide Attempt: No (rehearsal behavior with old medications in November 2021, but did not take them) Past Medication Trials: zoloft (crushed pill and had with food, stopped due to concerns about being dependent on medication, was on 50mg and took it only 3 times), fluoxetine liquid (had been on 10mL, had stopped taking it about mid-October 2021 as it causing fatigue) Past Head Trauma/Neuro History History of Concussion/Seizure: No Allergies Allergy/AdvReac Type Severity Reaction Status Date / Time No Known Allergies Allergy Verified 10/27/19 09:12 Home Medications Medication Instructions Recorded Confirmed Type vit no.95-ferrous 1 tab PO DAILY 03/04/19 03/09/21 History fumarate 28 mg-folic acid 800 mcg tablet () vitamin [id number] acid 03/09/21 History ibuprofen 600 mg tablet 600 mg PO Q4H #30 tabs 03/10/21 Rx fluoxetine 20 mg/5 mL (4 mg/mL) 20 mg PO 1XD 01/09/22 01/09/22 History oral solution Family History Family History of: Depression (mom), Anxiety (mom) and Doesn't Know (paternal side of family) Alcohol History Hx of Alcohol Use Over the Past 12 Months: No AUDIT Total Score: 1 Smoking Use Have You Smoked or Used Tobacco Products in the Last 30 Days: No Smoking Status: Never smoker Substance History Hx of Prescription Med Misuse Over the Past 12 Months: No Hx of Over the Counter Med Misuse Over the Past 12 Months: No Hx of Inhalent Misuse Over the Past 12 Months: No Hx of Organic Substance Use Over the Past 12 Months: No Hx of Illegal Substances/Street Drug Use Over Past 12 Months: No Problems as a Result of Past Substance Use: None Identified Personal History Living Arrangements: Home Childhood: Supports including her mom and step-dad who live in [place]. She grew up locally. Highest Grade Completed: High School Graduate and College (taking online classes 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 History of PCOS History of depression no meds Pyelonephritis Family History Other No significant family history Social History Smoking Status: Never smoker Second Hand Exposure: No; Hx Alcohol Use: No Hx Substance Use: No Preferred Language: Irish Communication Ability: Effective Director Of Math Required: No Beliefs That Will Affect Care: None marital status: Current Living Situation: Family Current Living Situation Comment: Lives with and 2 children Feels Safe at Home: Yes Assistive Devices: None Review of Systems Review of Systems: All systems reviewed & are unremarkable except as noted in HPI & below (pain she feels is related to her IUD ) Physical Exam Psychiatric: Orientation: alert and oriented x 3 Apperance: appropriately dressed and appropriately groomed Eye Contact: good eye contact Motor Behavior: no abnormal motor movements Speech: normal rate/rhythm/volume of speech Affect: + depressed affect and + anxious affect Mood: + depressed mood and + anxious mood Thought Process: goal directed thought process Thought Content: reality based without delusions Suicidal Thoughts: denies suicidal thoughts (but occurring prior to admission, feels safe here), denies suicidal plan and denies suicidal intent Homicidal Thoughts: denies homicidal thoughts Hallucinations: no auditory hallucinations and no visual hallucinations Cognition: recent memory grossly intact, remote memory grossly intact, attention grossly intact and language grossly intact Estimated Intelligence: consistent with education level Insight: + fair insight Judgement: + fair judgement Vital Signs (Past 24 Hours): Last Vital Signs Temp 36.9 C 01/10/22 06:44 Pulse 111 H 01/10/22 06:45 Resp 16 01/10/22 06:44 BP 136/64 01/10/22 06:45 Pulse Ox 100 01/09/22 21:57 O2 Del Method 01/09/22 21:57 Exam Statement: A physical exam was performed in the ED by Dr. Cortes for the purposes of medical clearance. I accept that physical as correct and adequate for the purposes of the inpatient physical exam. Results & Data ([facility]) Laboratory Results Laboratory Results - last 24 hr 01/09/22 01/09/22 01/09/22 17:54 17:54 18:39 WBC 8.55 RBC 4.39 Hgb 13.0 Hct 39.5 MCV 90.0 MCH 29.6 MCHC 32.9 RDW Std Deviation 40.6 RDW Coeff of Dom 12.4 Plt Count 308 MPV 10.0 Immature Gran % (Auto) 0.2 Neut % (Auto) 65.5 Lymph % (Auto) 27.7 [place] % (Auto) 5.4 Eos % (Auto) 0.8 Baso % (Auto) 0.4 Neut # (Auto) 5.60 Lymph # (Auto) 2.37 [place] # (Auto) 0.46 Eos # (Auto) 0.07 Baso # (Auto) 0.03 Immature Gran # (Auto) 0.02 Sodium Potassium Chloride Carbon Dioxide Anion Gap BUN Creatinine Est Cr Clr Drug Dosing Est GFR ( Amer) Est GFR (Non-Af Amer) BUN/Creatinine Ratio Glucose Calcium Total Bilirubin AST ALT Alkaline Phosphatase Total Protein Albumin Globulin Albumin/Globulin Ratio TSH Urine Color Yellow Urine Appearance Clear Urine pH 5.5 Ur Specific [place] 1.030 Urine Protein Negative Urine Glucose (UA) Negative Urine Ketones Trace H Urine Blood Negative Urine Nitrite Negative Urine Bilirubin Negative Urine Urobilinogen Negative Ur Leukocyte Esterase Negative Salicylates Urine Opiates Screen Neg Ur Methadone, Qual Neg Acetaminophen Urine Barbiturates Neg Ur Phencyclidine (PCP) Neg U Amphetamin/Meth Scrn Neg MDMA (Ecstasy) Screen Neg U Benzodiazepines Scrn Neg Ur Cocaine Metabolite Neg U Marijuana (THC) Screen Neg Ethyl Alcohol mg/dL SARS-CoV-2, RNA, NAAT 01/09/22 01/09/22 01/09/22 18:39 18:39 18:39 WBC RBC Hgb Hct MCV MCH MCHC RDW Std Deviation RDW Coeff of Dom Plt Count MPV Immature Gran % (Auto) Neut % (Auto) Lymph % (Auto) [place] % (Auto) Eos % (Auto) Baso % (Auto) Neut # (Auto) Lymph # (Auto) [place] # (Auto) Eos # (Auto) Baso # (Auto) Immature Gran # (Auto) Sodium 138 Potassium 3.9 Chloride 107 Carbon Dioxide 24 Anion Gap 7 BUN 11 Creatinine 0.74 Est Cr Clr Drug Dosing 122.9 Est GFR ( Amer) 127.8 Est GFR (Non-Af Amer) 110.3 BUN/Creatinine Ratio 14.9 Glucose 102 H Calcium 9.1 Total Bilirubin 0.3 AST 13 ALT 11 Alkaline Phosphatase 64 Total Protein 7.5 Albumin 4.5 Globulin 3.0 Albumin/Globulin Ratio 1.5 TSH 1.975 Urine Color Urine Appearance Urine pH Ur Specific [place] Urine Protein Urine Glucose (UA) Urine Ketones Urine Blood Urine Nitrite Urine Bilirubin Urine Urobilinogen Ur Leukocyte Esterase Salicylates < 3.0 L Urine Opiates Screen Ur Methadone, Qual Acetaminophen < 3 L Urine Barbiturates Ur Phencyclidine (PCP) U Amphetamin/Meth Scrn MDMA (Ecstasy) Screen U Benzodiazepines Scrn Ur Cocaine Metabolite U Marijuana (THC) Screen Ethyl Alcohol mg/dL SARS-CoV-2, RNA, NAAT 01/09/22 01/09/22 18:39 19:06 WBC RBC Hgb Hct MCV MCH MCHC RDW Std Deviation RDW Coeff of Dom Plt Count MPV Immature Gran % (Auto) Neut % (Auto) Lymph % (Auto) [place] % (Auto) Eos % (Auto) Baso % (Auto) Neut # (Auto) Lymph # (Auto) [place] # (Auto) Eos # (Auto) Baso # (Auto) Immature Gran # (Auto) Sodium Potassium Chloride Carbon Dioxide Anion Gap BUN Creatinine Est Cr Clr Drug Dosing Est GFR ( Amer) Est GFR (Non-Af Amer) BUN/Creatinine Ratio Glucose Calcium Total Bilirubin AST ALT Alkaline Phosphatase Total Protein Albumin Globulin Albumin/Globulin Ratio TSH Urine Color Urine Appearance Urine pH Ur Specific [place] Urine Protein Urine Glucose (UA) Urine Ketones Urine Blood Urine Nitrite Urine Bilirubin Urine Urobilinogen Ur Leukocyte Esterase Salicylates Urine Opiates Screen Ur Methadone, Qual Acetaminophen Urine Barbiturates Ur Phencyclidine (PCP) U Amphetamin/Meth Scrn MDMA (Ecstasy) Screen U Benzodiazepines Scrn Ur Cocaine Metabolite U Marijuana (THC) Screen Ethyl Alcohol mg/dL < 10.0 SARS-CoV-2, RNA, NAAT NEGATIVE Current Inpatient Medications Current Inpatient Medications: Current Inpatient Medications Acetaminophen (Acetaminophen 325 Mg Tab) 650 mg PO Q4H PRN PRN Reason: Headache or Minor Fever Stop: 02/08/22 21:16 Al Hydrox/Mg Hydrox/Simethicone (Aluminum/Magnesium Susp 30 Ml Udc) 30 ml PO Q4H PRN PRN Reason: GI Upset Stop: 02/08/22 21:16 Bismuth Subsalicylate (Bismuth Subsalicylate Liqd 236 Ml) 15 ml PO PRN PRN PRN Reason: Loose Stool Stop: 02/08/22 21:16 Hydroxyzine HCl (Hydroxyzine Hcl 25 Mg Tab) 50 mg PO HSZ PRN PRN Reason: Insomnia Stop: 02/08/22 21:16 Hydroxyzine HCl (Hydroxyzine Hcl 25 Mg Tab) 25 mg PO Q4H PRN PRN Reason: Anxiety Stop: 02/08/22 21:16 Magnesium Hydroxide (Magnesium Hydroxide Susp 30 Ml Udc) 30 ml PO DAILY PRN PRN Reason: Constipation Stop: 02/08/22 21:16 Sodium Chloride (Sodium Chloride 0.65% Na Soln 45 Ml ([place])) 1 - 2 sprays NA PRN PRN PRN Reason: Nasal Dryness/Congestion Stop: 02/08/22 21:16
[2022-01-10] MEDS: ESCITALOPRAM OXALATE ORAL SOLN 5 MG/5 ML UDP PO SCH (15:12)
[2022-01-11] MEDS: ESCITALOPRAM OXALATE ORAL SOLN 5 MG/5 ML UDP PO SCH (08:37)
--- NOTE | 2022-01-11 13:15 | Psychiatric Progress Note ---
Date of Service January 11, 2022 Impression / Recommendations Impression The patient is a 26 year old with a history of MDD, PTSD, post- who was admitted for worsening mood shifts and SI and difficulty functioning. Diagnostically consistent with unspecified mood disorder possible BPAD type II versus MDD with anxious and likely contribution from PTSD and possible hormonal control effects on her mood. The patient is deemed unstable and requires psychiatric hospitalization for diagnostic clarification, safety and stabilization, medication management and development of further coping skills. 01/11/22: some improvement, remains anxious, no evidence of bipolar mood swings on unit. discussed duration of onset of action with antidepressants and use of prns in interim for anxiety. (1) Recurrent severe major depressive disorder with anxiety: (2) Suicidal ideations: (3) Post traumatic stress disorder (PTSD): Plan 01/11/22: titrate Lexapro liquid to 10 mg daily. Vistaril available prn and can be crushed. 01/10/22: The patient was admitted to the [facility] ([facility] mental [facility] unit) on q15 min checks (behavioral with suicide precautions) for safety. The patient will participate in group, recreational, and milieu therapies and will be offered additional individual and family sessions as clinically appropriate. -agreeable to starting outpatient therapy -escitalopram 5mg liquid Inventory Assets Strengths: trauma survivor/resilient, supportive marriage, new job, wants help Needs: safety and stabilization, medication adjustment, additional coping skills, increased outpatient services Suicide Risk Level Suicide Risk Level Comments: High-Moderate due to severe depression with SI with plan prior to admission but feels safe in the hospital, able to safety contract and agrees to let nursing/staff know should they develop plan, intent or feel unable to remain safe. Risk Factors Assessment : Yes Do You Have Access To A Gun?: No Mental Health Diagnoses: Yes Previous Attempt: No Family History of Suicide: No Previous Psychiatric Hospitalization: No Hopelessness: Yes Protective Factors Assessment : Yes Responsible for Young Children: Yes Employed: Yes Stable Relationships: Yes Supportive Family: Yes Interval History Identifying Information NOAH SANTA is a 26-year-old F who currently lives in [place] with her and three children, has a history of MDD, anxiety, PTSD and post- depression, and was admitted on 01/09/22 21:17 on a 201 voluntary commitment for mood changes, SI and difficulty functioning. Chief Complaint "I guess I just get tired of the roller coaster", referring to waking up this am low, with some passive wish than attending group without incident. Review of Systems Sleep Information Total Hours of Sleep: 7.25 Meal Information Percent Meal Consumed - Breakfast: 100 Percent Meal Consumed - Lunch: 90 Percent Meal Consumed - Dinner: 100 Subjective Subjective Patient was seen & assessed and interval progress reviewed with treatment team. Generally attributes her mood shifts to managing anxiety about things such as missing 's birthday as she is in the hospital or as reaction to other physical issues such as bloating/pain from her IUD (patient's reports trying to have it removed). is scheduled or a vasectomy consultation in February. Physical Exam Psychiatric Orientation: alert and oriented x 3 Apperance: appropriately dressed and appropriately groomed Eye Contact: good eye contact Motor Behavior: no abnormal motor movements Speech: normal rate/rhythm/volume of speech Affect: + depressed affect and + anxious affect Mood: + depressed mood and + anxious mood Thought Process: goal directed thought process Thought Content: reality based without delusions Suicidal Thoughts: denies suicidal thoughts (but occurring prior to admission, feels safe here), denies suicidal plan and denies suicidal intent Homicidal Thoughts: denies homicidal thoughts Hallucinations: no auditory hallucinations and no visual hallucinations Cognition: recent memory grossly intact, remote memory grossly intact, attention grossly intact and language grossly intact Estimated Intelligence: consistent with education level Insight: + fair insight Judgement: + fair judgement Vital Signs (Past 24 Hours) Last Vital Signs Temp 36.8 C 01/11/22 06:41 Pulse 85 01/11/22 06:41 Resp 16 01/11/22 06:41 BP 112/80 01/11/22 06:41 Pulse Ox 100 01/09/22 21:57 O2 Del Method 01/09/22 21:57 Results & Data ([facility]) Current Inpatient Medications Current Inpatient Medications: Current Inpatient Medications Acetaminophen (Acetaminophen 325 Mg Tab) 650 mg PO Q4H PRN PRN Reason: Headache or Minor Fever Stop: 02/08/22 21:16 Al Hydrox/Mg Hydrox/Simethicone (Aluminum/Magnesium Susp 30 Ml Udc) 30 ml PO Q4H PRN PRN Reason: GI Upset Stop: 02/08/22 21:16 Bismuth Subsalicylate (Bismuth Subsalicylate Liqd 236 Ml) 15 ml PO PRN PRN PRN Reason: Loose Stool Stop: 02/08/22 21:16 Escitalopram Oxalate (Escitalopram Oxalate Oral Soln 10 Mg/10 Ml Udp) 10 mg PO QAM GILLIAN Stop: 02/11/22 08:59 Hydroxyzine HCl (Hydroxyzine Hcl 25 Mg Tab) 50 mg PO HSZ PRN PRN Reason: Insomnia Stop: 02/08/22 21:16 Hydroxyzine HCl (Hydroxyzine Hcl 25 Mg Tab) 25 mg PO Q4H PRN PRN Reason: Anxiety Stop: 02/08/22 21:16 Magnesium Hydroxide (Magnesium Hydroxide Susp 30 Ml Udc) 30 ml PO DAILY PRN PRN Reason: Constipation Stop: 02/08/22 21:16 Sodium Chloride (Sodium Chloride 0.65% Na Soln 45 Ml ([place])) 1 - 2 sprays NA PRN PRN PRN Reason: Nasal Dryness/Congestion Stop: 02/08/22 21:16 Post Discharge Appointments Primary Care Physician Name Of Family Doctor: Nallely De Leon
[2022-01-12] MEDS: ESCITALOPRAM OXALATE ORAL SOLN 10 MG/10 ML UDP PO SCH (07:35)
--- NOTE | 2022-01-12 14:27 | Psychiatric Progress Note ---
Date of Service January 12, 2022 Impression / Recommendations Impression The patient is a 26 year old with a history of MDD, PTSD, post- who was admitted for worsening mood shifts and SI and difficulty functioning. Diagnostically consistent with unspecified mood disorder possible BPAD type II versus MDD with anxious and likely contribution from PTSD and possible hormonal control effects on her mood. The patient is deemed unstable and requires psychiatric hospitalization for diagnostic clarification, safety and stabilization, medication management and development of further coping skills. 01/12/22: ongoing improvement (1) Recurrent severe major depressive disorder with anxiety: (2) Suicidal ideations: (3) Post traumatic stress disorder (PTSD): Plan 01/12/22: continue current med and tx plan. 01/11/22: titrate Lexapro liquid to 10 mg daily. Vistaril available prn and can be crushed. 01/10/22: The patient was admitted to the [facility] ([facility]) on q15 min checks (behavioral with suicide precautions) for safety. The patient will participate in group, recreational, and milieu therapies and will be offered additional individual and family sessions as clinically appropriate. -agreeable to starting outpatient therapy -escitalopram 5mg liquid Inventory Assets Strengths: trauma survivor/resilient, supportive marriage, new job, wants help Needs: safety and stabilization, medication adjustment, additional coping skills, increased outpatient services Suicide Risk Level Suicide Risk Level: Moderate (q15 min suicide checks) Risk Factors Assessment : Yes Do You Have Access To A Gun?: No Mental Health Diagnoses: Yes Previous Attempt: No Family History of Suicide: No Previous Psychiatric Hospitalization: No Hopelessness: Yes Protective Factors Assessment : Yes Responsible for Young Children: Yes Employed: Yes Stable Relationships: Yes Supportive Family: Yes Interval History Identifying Information NOAH SANTA is a 26-year-old F who currently lives in [place] with her and three children, has a history of MDD, anxiety, PTSD and post- depression, and was admitted on 01/09/22 21:17 on a 201 voluntary commitment for mood changes, SI and difficulty functioning. 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 hasn't tried Vistaril prn. felt reassured that inlaws helped with taking care of husbands birthday dinner. discussed her semester off, work, motherhood. out of room more and denying SI. Tolerating Lexapro. Physical Exam Psychiatric Orientation: alert and oriented x 3 Apperance: appropriately dressed and appropriately groomed Eye Contact: good eye contact Motor Behavior: no abnormal motor movements Speech: normal rate/rhythm/volume of speech Affect: euthymic affect Mood: + depressed mood and + anxious mood Thought Process: goal directed thought process Thought Content: reality based without delusions Suicidal Thoughts: denies suicidal thoughts (but occurring prior to admission, feels safe here), denies suicidal plan and denies suicidal intent Homicidal Thoughts: denies homicidal thoughts Hallucinations: no auditory hallucinations and no visual hallucinations Cognition: recent memory grossly intact, remote memory grossly intact, attention grossly intact and language grossly intact Estimated Intelligence: consistent with education level Insight: + fair insight Judgement: + fair judgement Vital Signs (Past 24 Hours) Last Vital Signs Temp 36.8 C 01/12/22 06:37 Pulse 96 H 01/12/22 06:38 Resp 16 01/12/22 06:37 BP 107/75 01/12/22 06:38 Pulse Ox 100 01/09/22 21:57 O2 Del Method 01/09/22 21:57 Results & Data ([facility]) Current Inpatient Medications Current Inpatient Medications: Current Inpatient Medications Acetaminophen (Acetaminophen 325 Mg Tab) 650 mg PO Q4H PRN PRN Reason: Headache or Minor Fever Stop: 02/08/22 21:16 Al Hydrox/Mg Hydrox/Simethicone (Aluminum/Magnesium Susp 30 Ml Udc) 30 ml PO Q4H PRN PRN Reason: GI Upset Stop: 02/08/22 21:16 Bismuth Subsalicylate (Bismuth Subsalicylate Liqd 236 Ml) 15 ml PO PRN PRN PRN Reason: Loose Stool Stop: 02/08/22 21:16 Escitalopram Oxalate (Escitalopram Oxalate Oral Soln 10 Mg/10 Ml Udp) 10 mg PO QAM GILLIAN Stop: 02/11/22 08:59 Last Admin: 01/12/22 07:35 Dose: 10 mg Hydroxyzine HCl (Hydroxyzine Hcl 25 Mg Tab) 50 mg PO HSZ PRN PRN Reason: Insomnia Stop: 02/08/22 21:16 Hydroxyzine HCl (Hydroxyzine Hcl 25 Mg Tab) 25 mg PO Q4H PRN PRN Reason: Anxiety Stop: 02/08/22 21:16 Magnesium Hydroxide (Magnesium Hydroxide Susp 30 Ml Udc) 30 ml PO DAILY PRN PRN Reason: Constipation Stop: 02/08/22 21:16 Sodium Chloride (Sodium Chloride 0.65% Na Soln 45 Ml (Ellinger)) 1 - 2 sprays NA PRN PRN PRN Reason: Nasal Dryness/Congestion Stop: 02/08/22 21:16 Post Discharge Appointments Primary Care Physician Name Of Family Doctor: Nallely De Leon
[2022-01-13] MEDS: ESCITALOPRAM OXALATE ORAL SOLN 10 MG/10 ML UDP PO SCH (08:29)
--- NOTE | 2022-01-13 14:02 | Discharge Summary ---
Date of Service January 13, 2022 History of Present Illness As per Dr. Mora on admission: Ariella presents for psychiatric admission for worsening depression, mood cycles, SI and inability to function with lack of self-care, not able to go to work in the context of multiple psychosocial stressors including 10 month old baby, financial strain, and new job. She got a Mirena IUD in August 2021 and she feels that since having this it has negatively impacted her mood with more mood swings and she recalls having similar issues when she was on the depot injection in the past. Reviewed and she confirmed the following recent history as documented by hotel assistant manager on 01/09/22: " Patient reports that she has a history of depression, PTSD, and anxiety. Patient reports that she had two babies back to back and suffers from depression. Patient youngest baby is 10 months old. Patient reports that she has been cycling through low and high periods depending on the day. Patient reports when she is at her low she is having hard time getting out of bed, unable to shower, isolates herself from others, feels constantly anxious, and has frequent crying spells. The next day she may go to the other extreme with decrease need for sleep, excessive energy, excessive cleaning, and excessive spending. Patient reports she is currently only getting 3 hours of sleep per night. Patient also reports extreme changes in appetite; either eating too much or not eating at all. Patient denies auditory and visual hallucinations, and paranoia. Patient reports that she does experience a lot of internal negative self-talk. Patient reports having suicidal thoughts constantly throughout her day, stating I just want it to be over. Patient denies currently having a suicidal plan, but does admit that a month ago she carried her old medications to her bedroom with the intent of overdosing, but was unable to follow through with it. Patient denies HI and self-injurious behaviors. Patient does reports fits of verbal aggression towards her ." She endorses depressive symptoms including tearfulness, anhedonia, decreased motivation, self-guilt, helplessness, hopelessness, decreased energy, decreased appetite, and decreased sleep with only 3 hours per night but slept well here last night. SI has been occurring almost daily but denies specific plans. She also endorses symptoms of anxiety including generalized worries easily overwhelmed and panic attacks once per month. She's been having more flashbacks to past trauma recently, no night terrors. She is not currently prescribed any psychiatric medications. Psychiatric ROS notable for history of symptoms of hypomania including "a bad ga mbling issue on those high days of buying lottery tickets and believing I'm going to win" though also buys lottery tickets on days when she is depressed, endorses sometimes seeing "dark shadowy things" on days when her mood is low; hx PTSD (has been experiencing some flashbacks lately), no hx OCD, no hx self-harm, no hx eating disorder. Physical Exam Psychiatric See admission H&P and DOD assessment. Vital Signs (Past 24 Hours) Last Vital Signs Temp 36.6 C 01/13/22 06:38 Pulse 112 H 01/13/22 06:38 Resp 16 01/13/22 06:38 BP 114/79 01/13/22 06:38 Pulse Ox 100 01/09/22 21:57 O2 Del Method 01/09/22 21:57 Principal Diagnosis major depressive disorder Psychiatric Data See daily stay summary. In short, safety was maintained and the patient was cooperative with care. Medication changes included a trial of Lexapro liquid as patient is unable to tolerate pills and longtime non compliance with crushing preparations. She found it more tolerable than other SSRI liquids. A family session was held and safety plan was completed prior to discharge. Day of Discharge Assessment Today the patient voices readiness for discharge. They note improvement in mood and deny thoughts to harm self or others. Thoughts remain organized and they are improved from admission. There is no evidence of psychosis. They agree to take mediations as prescribed and keep follow-up appointments. They are stable for discharge to outpatient level of care. Transition of Care Transition Of Care Record: was reviewed with the patient Advance Directives Advance Directives Information Provided: Yes Advance Directives: No Mental Health Advance Directive: No Advance Directives on File: No Living Will: No Power of Route Supervisor: No Advance Directives Reason:: Declines as Mental Health Visit. Suicide Risk Level Suicide Risk Level Comments: Suicide risk at discharge is deemed low as the patient is no longer requiring 24-hr monitoring, has a safety plan, and is free of suicidal ideation at discharge. Risk Factors Assessment : Yes Do You Have Access To A Gun?: No Mental Health Diagnoses: Yes Previous Attempt: No Family History of Suicide: No Previous Psychiatric Hospitalization: No Hopelessness: Yes Protective Factors Assessment : Yes Responsible for Young Children: Yes Employed: Yes Stable Relationships: Yes Supportive Family: Yes Tobacco Cessation at Discharge Tobacco Cessation Medication Prescribed at Discharge: Not Applicable/Non-Smoker Total Time Total Time Spent: Greater Than 30 Minutes Total Time Includes: Examination of the patient, Discharge Planning and Medication Reconciliation Discharge Data Lab Results 01/09/22 01/09/22 01/09/22 17:54 17:54 18:39 WBC 8.55 RBC 4.39 Hgb 13.0 Hct 39.5 MCV 90.0 MCH 29.6 MCHC 32.9 RDW Std Deviation 40.6 RDW Coeff of Dom 12.4 Plt Count 308 MPV 10.0 Immature Gran % (Auto) 0.2 Neut % (Auto) 65.5 Lymph % (Auto) 27.7 Phillips % (Auto) 5.4 Eos % (Auto) 0.8 Baso % (Auto) 0.4 Neut # (Auto) 5.60 Lymph # (Auto) 2.37 Phillips # (Auto) 0.46 Eos # (Auto) 0.07 Baso # (Auto) 0.03 Immature Gran # (Auto) 0.02 Sodium Potassium Chloride Carbon Dioxide Anion Gap BUN Creatinine Est Cr Clr Drug Dosing Est GFR ( Amer) Est GFR (Non-Af Amer) BUN/Creatinine Ratio Glucose Calcium Total Bilirubin AST ALT Alkaline Phosphatase Total Protein Albumin Globulin Albumin/Globulin Ratio TSH Urine Color Yellow Urine Appearance Clear Urine pH 5.5 Ur Specific Copeland 1.030 Urine Protein Negative Urine Glucose (UA) Negative Urine Ketones Trace H Urine Blood Negative Urine Nitrite Negative Urine Bilirubin Negative Urine Urobilinogen Negative Ur Leukocyte Esterase Negative Salicylates Urine Opiates Screen Neg Ur Methadone, Qual Neg Acetaminophen Urine Barbiturates Neg Ur Phencyclidine (PCP) Neg U Amphetamin/Meth Scrn Neg MDMA (Ecstasy) Screen Neg U Benzodiazepines Scrn Neg Ur Cocaine Metabolite Neg U Marijuana (THC) Screen Neg Ethyl Alcohol mg/dL SARS-CoV-2, RNA, NAAT 01/09/22 01/09/22 01/09/22 18:39 18:39 18:39 WBC RBC Hgb Hct MCV MCH MCHC RDW Std Deviation RDW Coeff of Dom Plt Count MPV Immature Gran % (Auto) Neut % (Auto) Lymph % (Auto) Phillips % (Auto) Eos % (Auto) Baso % (Auto) Neut # (Auto) Lymph # (Auto) Phillips # (Auto) Eos # (Auto) Baso # (Auto) Immature Gran # (Auto) Sodium 138 Potassium 3.9 Chloride 107 Carbon Dioxide 24 Anion Gap 7 BUN 11 Creatinine 0.74 Est Cr Clr Drug Dosing 122.9 Est GFR ( Amer) 127.8 Est GFR (Non-Af Amer) 110.3 BUN/Creatinine Ratio 14.9 Glucose 102 H Calcium 9.1 Total Bilirubin 0.3 AST 13 ALT 11 Alkaline Phosphatase 64 Total Protein 7.5 Albumin 4.5 Globulin 3.0 Albumin/Globulin Ratio 1.5 TSH 1.975 Urine Color Urine Appearance Urine pH Ur Specific Copeland Urine Protein Urine Glucose (UA) Urine Ketones Urine Blood Urine Nitrite Urine Bilirubin Urine Urobilinogen Ur Leukocyte Esterase Salicylates < 3.0 L Urine Opiates Screen Ur Methadone, Qual Acetaminophen < 3 L Urine Barbiturates Ur Phencyclidine (PCP) U Amphetamin/Meth Scrn MDMA (Ecstasy) Screen U Benzodiazepines Scrn Ur Cocaine Metabolite U Marijuana (THC) Screen Ethyl Alcohol mg/dL SARS-CoV-2, RNA, NAAT 01/09/22 01/09/22 18:39 19:06 WBC RBC Hgb Hct MCV MCH MCHC RDW Std Deviation RDW Coeff of Dom Plt Count MPV Immature Gran % (Auto) Neut % (Auto) Lymph % (Auto) Phillips % (Auto) Eos % (Auto) Baso % (Auto) Neut # (Auto) Lymph # (Auto) Phillips # (Auto) Eos # (Auto) Baso # (Auto) Immature Gran # (Auto) Sodium Potassium Chloride Carbon Dioxide Anion Gap BUN Creatinine Est Cr Clr Drug Dosing Est GFR ( Amer) Est GFR (Non-Af Amer) BUN/Creatinine Ratio Glucose Calcium Total Bilirubin AST ALT Alkaline Phosphatase Total Protein Albumin Globulin Albumin/Globulin Ratio TSH Urine Color Urine Appearance Urine pH Ur Specific Copeland Urine Protein Urine Glucose (UA) Urine Ketones Urine Blood Urine Nitrite Urine Bilirubin Urine Urobilinogen Ur Leukocyte Esterase Salicylates Urine Opiates Screen Ur Methadone, Qual Acetaminophen Urine Barbiturates Ur Phencyclidine (PCP) U Amphetamin/Meth Scrn MDMA (Ecstasy) Screen U Benzodiazepines Scrn Ur Cocaine Metabolite U Marijuana (THC) Screen Ethyl Alcohol mg/dL < 10.0 SARS-CoV-2, RNA, NAAT NEGATIVE Hospital Course (1) Recurrent severe major depressive disorder with anxiety: (2) Suicidal ideations: (3) Post traumatic stress disorder (PTSD): Plan 01/12/22: continue current med and tx plan. 01/11/22: titrate Lexapro liquid to 10 mg daily. Vistaril available prn and can be crushed. 01/10/22: The patient was admitted to the [facility] on q15 min checks (behavioral with suicide precautions) for safety. The patient will participate in group, recreational, and milieu therapies and will be offered additional individual and family sessions as clinically appropriate. -agreeable to starting outpatient therapy -escitalopram 5mg liquid Mental Health & Subst Abuse Tx Psychiatrist Name of Psychiatrist: [facility] Psychiatrist's Date of Appointment with Psychiatrist: 01/19/22 Time of Appointment with Psychiatrist: 10 AM Psychiatric Appointment Comment: [address] [place] [address] Psychiatrist Release of Information: Obtained, Reviewed and Signed Therapist Name of Therapist: [facility] Therapist's Phone Number: [address], [address], [place] [address] Date of Therapist Appointment: 01/21/22 Time of Therapist Appointment: 10 AM Therapy Appointment Comment: Please check your email for documents and link for session. Therapist Release of Information: Obtained, Reviewed and Signed Post Discharge Appointments Primary Care Physician Name Of Family Doctor: Nallely De Leon Primary Care Provider Appointment Comment: Please schedule with PCP as needed. Primary Care Release of Information: Obtained, Reviewed and Signed Smoking Cessation Counseling Tobacco Cessation Medication Prescribed at Discharge: Not Applicable/Non-Smoker Contact Information Discharge Discharge [address]: [address] [place] [id number] Discharge Plan Discharge Items Patient Disposition: Home - Self-Care Reason For Visit: MDD/201 Discharge Diagnosis: major depressive disorder Activity: Resume your previous activity Non-emergency contact: Primary Care Provider, Psychiatrist and Therapist Call non-emergency contact if: you have any medication questions and your symptoms worsen Follow-up/Referrals: Nallely De Leon PA-C [Primary Care Provider] - Diet: Regular Addtl Attending Provider Instructions: SPECIAL CARE INSTRUCTIONS: 1. Follow through with your scheduled aftercare appointments. If unable to keep an appointment, please call to reschedule. 2. Take your medication only as prescribed. Medication should not be changed or stopped without the approval of your doctor. In the event of worsening symptoms or concerns about side effects, contact your doctor immediately. 3. Utilize new healthy coping skills, anger management skills, and stress management skills learned during your hospitalization. Journal feelings and process them with a support person. Identify stressors or situations that may result in relapse, deterioration or inappropriate behaviors and develop a plan to deal with those issues. 4. If your coping skills are ineffective and you are in crisis, contact your outpatient providers for direction. If unable to reach your providers, please call the [facility] CRISIS LINE AT , go to the [facility] walk-in center at [address], [place], or go to the closest Emergency Room. 5. Avoid alcohol and un-prescribed drugs. 6. You have been provided with the Mental Health Advance Directives Pamphlet for your review. 7. Your condition is stable for discharge to outpatient level of care, but recovery is an ongoing process. Ifthoughts to harm yourself or others return, follow the safety plan developed during your stay. Planning for a safe return home includes securing weapons. Our treatment team recommends weaponsbe removed from the home until your outpatient provider reassesses your progress. In rare cases where the items themselvescannot be removed, guns and ammunitionshould be secured separatelyand keys stored by a reliable personoutside of the home. If you were admitted on an involuntary commitment, the police or other legal authorities may be involved in this process. AFTERCARE APPOINTMENTS: * Please call your insurance company prior to your scheduled appointment to confirm your aftercare providers are covered. Take your insurance information to your appointments. WHO TO CALL AND WHEN: Medical Emergencies: For questions or emergencies related to your hospital stay, please contact the Inpatient Behavioral Health Unit at [phone]. A [employer] ticket cashier is on-call 06/12 for the Behavioral Health Unit for emergencies At any time you feel your situation is an emergency, you may also call 911 immediately. Pending Studies at Discharge: No Stand-Alone Forms: My [facility] Good Eggs, Smoking Cessation Medications and DC Order Prescriptions: New escitalopram oxalate 5 mg/5 mL Solution 10 mg PO QAM 30 Days Qty: 300 0RF hydroxyzine HCl 10 mg/5 mL solution 25 mg PO BID PRN (Reason: anxiety) Qty: 118 0RF Rx Instructions: aware of QTc issues with lexapro, both are low dose Continued vitamin R36-tlyse acid Discontinued PNV cmb#95-ferrous fumarate-FA [] 28 mg iron- 800 mcg Tablet 1 tab PO DAILY fluoxetine 20 mg/5 mL (4 mg/mL) solution 20 mg PO 1XD ibuprofen 600 mg Tablet 600 mg PO Q4H Qty: 30 0RF Discharge Orders: Discharge Order (Routine); Ordered 01/13/22 Ordered By: Starla Eagle Admission Data Admit Date/Time: 01/09/22 21:17 Attending Provider: Starla Eagle Admit Provider: Jasmyn Mora Primary Care Provider: Nallely De Leon Other Interventions: PSY Interdisciplinary Discharge Planning Last Done: 01/13/22 13:41 Coding Level of Care Code 27692 D/C day mgmt > 30 min Diagnoses Recurrent severe major depressive disorder with anxiety F33.2; F41.9 Suicidal ideations R45.851 Post traumatic stress disorder (PTSD) F43.10
== END 2022-01-13 15:25 | disposition home or self-care (01) | DRG 885 ==
LOC: ED 17:22 → 3S 21:17 → SUATTDRO 21:17 → 3S 21:37

== ENCOUNTER 2023-09-24 18:41 | Inpatient (IN) ==
--- NOTE | 2023-09-24 18:58 | Emergency Department Note ---
Impression & Plan Palpitations, Suicidal ideation ED Provider Note NAME: NOAH SANTA AGE: 28 SEX: F : 1995 ARRIVES VIA: Walk-In INFORMANT: [Patient] ED PROVIDER(S): [Jose Rafael Loomis MD] CHIEF COMPLAINT: Cardiac assessment HISTORY OF PRESENT ILLNESS: The patient is a 28-year-old female who presents with palpitations for the last 2 days, primarily noticed in the latter part of the day. She was started last month on propranolol for the same complaint. The patient denies chest pain. No fever or chills, no cough or congestion. The patient does admit to some increased stress. She wonders if she may be having anxiety related palpitations. She states that her is ill and she is having to do a lot more around the house and a lot more with her children. She feels overwhelmed. Patient has had some thoughts of overdose. She has thought about taking her pills. She has a history of previous suicidality. She is currently voluntary. PMHx/PSHx/Social Hx: See Below PHYSICAL EXAM: GENERAL: Patient is in no acute distress. Anxious, tearful at times talking about her situation. HEENT: No acute trauma, normocephalic atraumatic, mucous membranes moist, no nasal congestion. NECK: No stridor, no adenopathy, no meningismus, trachea is midline. LUNGS: Clear to auscultation bilaterally, no wheeze, no rhonchi, breath sounds equal. HEART: Without murmurs gallops or rubs, regular rate and rhythm. ABDOMEN: Soft, nontender, no peritonitis. EXTREMITIES: No cyanosis, full range of motion of all the joints without pain or difficulty. NEUROLOGIC: Oriented x 3, no acute motor or sensory deficits, no focal weakness. SKIN: No jaundice, no diaphoresis. Psychiatric: Cooperative, voluntary, admits to feeling overwhelmed and having some thoughts to overdose on her 's medications. DIFFERENTIAL DIAGNOSIS: Depression/anxiety, suicidal ideation, electrolyte imbalance, thyroid disorder, dehydration, viral illness, dysrhythmia, among others. EMERGENCY DEPARTMENT PROCEDURES: MEDICAL DECISION MAKING: There was a very mild leukocytosis, this could be consistent with infection or just the stress of her current situation. There was a normal hemoglobin. Platelet count was slightly high at 441. There was no significant electrolyte abnormality or renal failure. No concerning liver enzyme elevation. TSH was mildly elevated however, the T4 was normal. testing returned negative. ECG showed a normal sinus rhythm, no ischemia or dysrhythmia. Cardiac enzyme testing x 1 was not consistent with acute cardiac injury. Urinalysis did not show findings of infection. Alcohol level was undetectable. Urine tox showed marijuana. COVID, influenza and RSV test were negative. Chest x-ray did not show mediastinal widening, cardiomegaly or pneumothorax. On exam, patient did not have any cardiac murmurs. She was anxious and tearful at times discussing her situation. She did admit to increased stress and depression. She admitted to some suicidal ideation as noted above. Patient received 1 L of IV saline for hydration. The patient was felt medically clear. I did consult psychiatry case management. Patient did talk at length with psychiatry case management. She met criteria for an inpatient psychiatric stay. She was voluntary. A psychiatric bed search is now underway. Again, the patient is voluntary, she is cooperative. The patient's case has been assumed by Dr. Mcgovern at the change of shift. Of note, I suspect her palpitations are secondary to her anxiety and stress. Prior/Outside records/notes reviewed: Family practice note from 09/08/2023 discussing her presentation and the thoughts to start propranolol for palpitations. ECG per my interpretation: Indication was palpitations. The ECG shows a normal sinus rhythm with a rate of 67. There is no acute ST elevation, no PVCs. The QTc is 401. Continuous Cardiac Monitoring per my interpretation: An order was placed for continuous cardiac monitoring. The monitor shows a rate of 88 with normal sinus rhythm. Imaging/x-ray results per my interpretation: Chest x-ray does not show mediastinal widening, pneumonia or pneumothorax. Chronic Medical/Social conditions affecting care: History of depression and anxiety. Care/Management discussed with: Psychiatry case management. Level of care consideration(s): After review of the information above and other included data: --I believe the patient requires escalation of care to voluntary psychiatric admission DISPOSITION: Currently still a patient here in the ED. Past Med/Surg History Medical History Urinary tract infection Pyelonephritis Suicidal ideations History of depression no meds Anxiety no meds currently was perscribed zolfot but has not started. History of PCOS Surgical History No pertinent past surgical history Family History Grandmother (Maternal) Myocardial infarction Family/Other Hypertension Denies family history of Ovarian cancer Prostate cancer Breast cancer Colorectal cancer Social History Smoking Status: Never smoker Second Hand Exposure: No; Do You Dip or Chew Tobacco: No; Hx Alcohol Use: No Hx Substance Use: Yes Prescribed Medications: Marijuana Last Used Substance: Hours (ago) Preferred Language: Andorran Communication Ability: Effective Radiator Cleaner Required: No Beliefs That Will Affect Care: None marital status: Current Living Situation: Spouse and Family Current Living Situation Comment: Lives with and 3 children current occupational status: unemployed How many Children do You have: 3 Feels Safe at Home: Yes Childhood Exposure to Second-Hand Smoke: Yes Diet: regular Dental Care, Regularly: Yes Physical Activity Frequency: 1-2 Times per Week Seatbelt Use: always Sunscreen Use: No Assistive Devices: None Allergies Allergies Allergy/AdvReac Type Severity Reaction Status Date / Time No Known Allergies Allergy Verified 09/22/23 08:52 Home Meds Home Medications Medication Instructions Recorded Confirmed cholecalciferol (vitamin D3) 1,250 50,000 unit PO WE 09/24/23 09/24/23 mcg (50,000 unit) capsule Previous Rx's Medication Instructions Recorded propranolol 10 mg tablet 10 mg PO BID #60 tabs 09/08/23 cephalexin 500 mg capsule 500 mg PO BID 7 days #14 caps 09/12/23 Results & Data (ED) Vital Signs Vital Signs - 24 hr 09/24/23 18:43 09/24/23 18:50 09/24/23 18:50 Temperature 36.6 C Temperature Source Oral Pulse Rate 77 Pulse Rate [Apical] Pulse Rhythm Regular Pulse Rhythm [Apical] Pulse Strength Normal Pulse Strength [Apical] Respiratory Rate 17 Respiratory Effort / Characteristics Non-Labored Spontaneous Respiratory Depth Normal Respiratory Pattern Regular Blood Pressure 181/119 H Blood Pressure [Left Arm] Blood Pressure Mean 139 Blood Pressure Mean [Left Arm] Blood Pressure Position Semi-fowlers Blood Pressure Position [Left Arm] Pulse Oximetry 99 98 Oxygen Delivery Method Room Air Room Air Room Air Sepsis Recent Fever Within 48 Hours No Sepsis New/Unexplained Change in Mental Status N/A Sepsis Action Taken by Nursing No Action Required 09/24/23 18:53 09/24/23 19:14 09/24/23 20:19 Temperature Temperature Source Pulse Rate Pulse Rate [Apical] 73 61 62 Pulse Rhythm Pulse Rhythm [Apical] Regular Regular Pulse Strength Pulse Strength [Apical] Normal Normal Respiratory Rate 20 22 18 Respiratory Effort / Characteristics Non-Labored Non-Labored Non-Labored Respiratory Depth Normal Normal Normal Respiratory Pattern Regular Regular Blood Pressure Blood Pressure [Left Arm] 164/110 H 146/97 H Blood Pressure Mean Blood Pressure Mean [Left Arm] 128 113 Blood Pressure Position Blood Pressure Position [Left Arm] Sitting Sitting Pulse Oximetry 98 97 97 Oxygen Delivery Method Room Air Room Air Room Air Sepsis Recent Fever Within 48 Hours Sepsis New/Unexplained Change in Mental Status Sepsis Action Taken by Jail Medications Current Medication List: was personally reviewed by me Laboratory Data Attestation: I reviewed the patient's lab results. 09/24/23 19:04 09/24/23 19:04 Lab Results 09/24/23 09/24/23 09/24/23 Range/Units 19:04 19:07 20:28 WBC 11.52 H (4.8-10.8) K/ul RBC 4.84 (4.20-5.40) M/uL Hgb 14.0 (12.0-16.0) g/dl Hct 41.4 (37.0-47.0) % MCV 85.5 (80.0-100.0) fL MCH 28.9 (25.0-34.0) pg MCHC 33.8 (32.0-36.0) g/dL RDW Std Deviation 40.5 (36.4-46.3) fL RDW Coeff of Dom 13.1 (11.5-14.5) % Plt Count 441 H (130-400) K/uL MPV 10.1 (9.4-12.4) fL Immature Gran % (Auto) 0.3 % Neut % (Auto) 58.2 % Lymph % (Auto) 33.8 % [place] % (Auto) 6.2 % Eos % (Auto) 1.1 % Baso % (Auto) 0.4 % Neut # (Auto) 6.71 H (1.40-6.50) K/uL Lymph # (Auto) 3.89 H (1.20-3.40) K/uL [place] # (Auto) 0.71 H (0.11-0.59) K/uL Eos # (Auto) 0.13 (0.00-0.50) K/uL Baso # (Auto) 0.05 (0.00-0.20) K/uL Immature Gran # (Auto) 0.03 (0.01-0.20) K/uL Sodium 138 (136-145) mmol/L Potassium 3.9 (3.5-5.1) mmol/L Chloride 105 (98-107) mmol/L Carbon Dioxide 24 (21-32) mmol/L Anion Gap 9 (3-11) BUN 12 (6-23) mg/dl Creatinine 0.76 (0.6-1.2) mg/dl Est Cr Clr Drug Dosing 123.9 ml/min Est GFR ( Amer) 122.0 ml/min Est GFR (Non-Af Amer) 105.3 ml/min BUN/Creatinine Ratio 15.8 (10-20) Glucose 101 H (70-99(Fasting)) mg/dl Calcium 9.7 (8.6-10.3) mg/dl Magnesium 2.1 (1.7-2.4) mg/dl Total Bilirubin 0.4 (0.2-1.0) mg/dl AST 20 (13-39) U/L ALT 21 (7-52) U/L Alkaline Phosphatase 67 (34-104) U/L Troponin I High Sens 3.3 (0-14) pg/ml Total Protein 8.3 (6.0-8.3) gm/dl Albumin 4.7 (3.4-5.0) gm/dl Globulin 3.6 (2.5-4.0) gm/dl Albumin/Globulin Ratio 1.3 (0.9-2) TSH 5.881 H (0.300-4.500) uIu/ml Free T4 0.72 (0.61-1.60) ng/dl HCG, Qual Negative (Negative) Urine Color Yellow Urine Appearance Clear (Clear) Urine pH 8.0 H (4.5-7.5) Ur Specific [place] 1.007 (1.000-1.030) Urine Protein Negative (Negative) Urine Glucose (UA) Negative (Negative) Urine Ketones Negative (Negative) Urine Blood Negative (Negative) Urine Nitrite Negative (Negative) Urine Bilirubin Negative (Negative) Urine Urobilinogen Negative (Negative) Ur Leukocyte Esterase 1+ H (Negative) Urine WBC (Auto) 0-5 (0-5) /hpf Urine RBC (Auto) 0-2 (0-2) /hpf U Hyaline Cast (Auto) 0-2 (0-2) /lpf U Epithel Cells (Auto) 3-5 H (0-2) /hpf Urine Bacteria (Auto) None Seen (None Seen) Urine Opiates Screen Neg (Neg) Ur Methadone, Qual Neg (Neg) Urine Barbiturates Neg (Neg) Ur Phencyclidine (PCP) Neg (Neg) U Amphetamin/Meth Scrn Neg (Neg) MDMA (Ecstasy) Screen Neg (Neg) U Benzodiazepines Scrn Neg (Neg) Ur Cocaine Metabolite Neg (Neg) U Marijuana (THC) Screen Pos H (Neg) Ethyl Alcohol mg/dL < 10.0 (<10.0) mg/dl SARS-CoV-2 (PCR) NEGATIVE (Negative) Influenza Type A (PCR) Negative (Neg) Influenza Type B (PCR) Negative (Neg) RSV (RT-PCR) Negative (Neg) Administered Medications Discontinued Medications Sodium Chloride (Nss) 1,000 mls @ 999 mls/hr IV .Q1H1M GILLIAN Stop: 09/24/23 20:00 Last Infusion: 09/24/23 20:11 Dose: Infused Documented By: Admin: 09/24/23 19:08 Dose: 999 mls/hr Documented By: ES Imaging Data Radiologist's Impression: Chest X-Ray 09/24/23 18:47 XR chest 1V portable CLINICAL HISTORY: weakness TECHNIQUE: Single frontal radiograph of the chest was obtained. Comparison: Comparison is made to chest radiograph 04/19/2017 FINDINGS: No lines and tubes are seen. The cardiomediastinal silhouette is normal. The lungs are clear. No evidence of pleural effusion or pneumothorax. IMPRESSION: No acute chest disease. ACT 112: Negative or not required by law. Electronically signed by: Kevin Yuan M.D. 09/24/2023 8:23 PM Discharge Plan Visit Data Chief Complaint: Cardiac Assessment Stated Complaint: TACHYCARDIA,CHEST PAIN/TIGHTNESS ED Provider: Jose Rafael Loomis Discharge Problem: Palpitations, Suicidal ideation Patient Disposition: Still a Patient Condition: Good Forms Stand Alone Forms: My [employer] Prescriptions Prescriptions: No Action cephalexin 500 mg capsule 500 mg PO BID 7 Days Qty: 14 0RF propranolol 10 mg tablet 10 mg PO BID Qty: 60 2RF cholecalciferol (vitamin D3) 1,250 mcg (50,000 unit) capsule 50,000 unit PO WE Rx Instructions: 50,000 units orally once weekly; Take on Sun. Referrals Referrals: Ros Wahl CRNP [Primary Care Provider] -
[2023-09-24] MEDS: SODIUM CHLORIDE 0.9% 1,000 ML IV SCH (19:08)
[2023-09-24 19:28] LABS: Basophils # (auto) 0.05 K/uL (0.00-0.20); Basophils % (auto) 0.4 %; Eosinophils # (auto) 0.13 K/uL (0.00-0.50); Eosinophils % (auto) 1.1 %; Hematocrit (blood only) 41.4 % (37.0-47.0); Immature Granulocytes # (auto) 0.03 K/uL (0.01-0.20); Immature Granulocytes % (auto) 0.3 %; Lymphocytes # (auto) 3.89 K/uL (1.20-3.40); Lymphocytes % (auto) 33.8 %; Mean Corpuscular Hemoglobin 28.9 pg (25.0-34.0); Mean Corpuscular Hgb Conc 33.8 g/dL (32.0-36.0); Mean Corpuscular Volume 85.5 fL (80.0-100.0); Mean Platelet Volume 10.1 fL (9.4-12.4); Monocytes # (auto) 0.71 K/uL (0.11-0.59); Monocytes % (auto) 6.2 %; Neutrophils # (auto) 6.71 K/uL (1.40-6.50); Neutrophils % (auto) 58.2 %; Platelet Count 441 K/uL (130-400); RDW Coefficient of Variation 13.1 % (11.5-14.5); RDW Standard Deviation 40.5 fL (36.4-46.3); Red Blood Count 4.84 M/uL (4.20-5.40); White Blood Count 11.52 K/ul (4.8-10.8)
[2023-09-24 19:38] LABS: Pregnancy Test, Serum Negative (Negative)
[2023-09-24 19:48] LABS: Albumin Globulin Ratio 1.3 (0.9-2); Albumin Level 4.7 gm/dl (3.4-5.0); BUN Creatinine Ratio 15.8 (10-20); Bilirubin,Total 0.4 mg/dl (0.2-1.0); Calcium 9.7 mg/dl (8.6-10.3); Creatinine Clr Calc Pharmacy 123.9 ml/min; Est GFR (Non-African American) 105.3 ml/min; Globulin 3.6 gm/dl (2.5-4.0); Magnesium 2.1 mg/dl (1.7-2.4); Potassium 3.9 mmol/L (3.5-5.1); Total Protein 8.3 gm/dl (6.0-8.3)
[2023-09-24 19:54] LABS: Troponin I High Sensitivity 3.3 pg/ml (0-14)
[2023-09-24 20:02] LABS: Influenza A virus by PCR Negative (Neg); Influenza B virus by PCR Negative (Neg); RSV by PCR Negative (Neg); SARS CoV2 RNA(COVID-19) Ceph NEGATIVE (Negative)
[2023-09-24 20:03] LABS: Thyroid Stimulating Hormone 5.881 uIu/ml (0.300-4.500)
--- NOTE | 2023-09-24 20:24 | XRay Report ---
XR chest 1V portable CLINICAL HISTORY: weakness TECHNIQUE: Single frontal radiograph of the chest was obtained. Comparison: Comparison is made to chest radiograph 04/19/2017 FINDINGS: No lines and tubes are seen. The cardiomediastinal silhouette is normal. The lungs are clear. No evid ence of pleural effusion or pneumothorax. IMPRESSION: No acute chest disease. ACT 112: Negative or not required by law. Electronically signed by: Kevin Yuan M.D. 09/24/2023 8:23 PM
[2023-09-24 20:38] LABS: T4 Free Thyroxine 0.72 ng/dl (0.61-1.60)
[2023-09-24 20:44] LABS: Appearance Urine Clear (Clear); Bacteria Urine Automated None Seen (None Seen); Bilirubin Urine Negative (Negative); Blood Urine Negative (Negative); Cast Urine Automated 0-2 /lpf (0-2); Color Urine Yellow; Glucose Urine UA Negative (Negative); Ketones Urine Negative (Negative); Leukocyte Esterase Urine 1+ (Negative); Nitrite Urine Negative (Negative); Protein Urine Negative (Negative); RBC Urine Automated 0-2 /hpf (0-2); Specific Gravity Urine 1.007 (1.000-1.030); Urobilinogen Urine Negative (Negative); WBC Urine Automated 0-5 /hpf (0-5)
[2023-09-24 21:26] LABS: Amphetamines+Metham, Urine Neg (Neg); Barbiturates, Urine Neg (Neg); Benzodiazepine, Urine Neg (Neg); Cocaine, Urine Neg (Neg); MDMA (Ecstacy), Urine Neg (Neg); Marijuana, Urine Pos (Neg); Methadone, Urine Neg (Neg); Opiate, Urine Neg (Neg); Phencyclidine, Urine Neg (Neg)
--- NOTE | 2023-09-24 21:51 | Emergency Department Note ---
ED Visit Note The patient was taken in signout from Dr. Loomis at the change of shift. Please see that note for details. The patient was pending psychiatric evaluation and management. Patient was evaluated by [facility]. She was accepted for voluntary psychiatric treatment. .
[2023-09-25] MEDS ORDERED: ACETAMINOPHEN 325 MG TAB PO PRN (01:28)
[2023-09-25] MEDS ORDERED: ALUMINUM/MAGNESIUM SUSP 30 ML UDC PO PRN (01:28)
[2023-09-25] MEDS ORDERED: BISMUTH SUBSALICYLATE LIQD 236 ML PO PRN (01:28)
[2023-09-25] MEDS ORDERED: MAGNESIUM HYDROXIDE SUSP 30 ML UDC PO PRN (01:28)
[2023-09-25] MEDS ORDERED: SODIUM CHLORIDE 0.65% NA SOLN 45 ML (OCEAN) PRN (01:28)
[2023-09-25 02:08] VITALS: O2SAT 99
--- NOTE | 2023-09-25 07:16 | Electrocardiogram Report ---
Test Reason : Blood Pressure : / mmHG Vent. Rate : 067 BPM Atrial Rate : 067 BPM P-R Int : 120 ms QRS Dur : 086 ms QT Int : 380 ms P-R-T Axes : 043 037 043 degrees QTc Int : 401 ms Normal sinus rhythm Normal ECG No previous ECGs available Confirmed by Sher Umana ([id number]) on 09/25/2023 7:15:47 AM Referred By: REFERRED SELF Confirmed By:Bob Umana
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
[2023-09-25] MEDS: PROPRANOLOL HCL 10 MG TAB PO SCH (13:03)
[2023-09-25] MEDS: GABAPENTIN 250 MG/5 ML 470 ML BTL PO SCH (13:43)
[2023-09-25] MEDS: ERGOCALCIFEROL 1250 MCG (50,000 UNITS) CAP PO SCH (13:43)
[2023-09-25] MEDS: cloNIDine HCL 0.1 MG TAB PO SCH (21:36)
[2023-09-25] MEDS: SERTRALINE HCL 50 MG TABLET PO SCH (21:39)
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
[2023-09-26] MEDS ORDERED: diphenhydrAMINE 2%/ZINC 0.1% CREAM 28.4GM TUBE EXT PRN (12:44)
[2023-09-26] MEDS: PROPRANOLOL HCL 10 MG TAB PO SCH (21:48)
[2023-09-26] MEDS: hydrOXYzine HCl 25 MG TAB PO PRN (23:26)
[2023-09-27 06:50] VITALS: RESP 16
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
[2023-09-27] MEDS: SERTRALINE HCL 50 MG TABLET PO SCH (21:39)
[2023-09-27] MEDS: busPIRone 5 MG TAB PO SCH (21:40)
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
[2023-09-28 13:17] LABS: Marijuana Quant, GCMS Urine 152 ng/mL (<5)
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
[2023-09-29] MEDS: hydrOXYzine HCl 25 MG TAB PO PRN (21:46)
[2023-09-30 06:40] VITALS: TEMP 98.4
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
[2023-09-30 10:49] VITALS: BP 140/98; PULSE 74
== END 2023-09-30 11:53 | disposition home or self-care (01) | DRG 885 ==
LOC: ED 18:41 → 3S 09-25 01:11